=== PATIENT | female | born 1960 | race Caucasian/White ===

== ENCOUNTER 2017-03-18 16:50 | Emergency (ER) | payer BC ==
[2017-03-18] MEDS ORDERED: oxyCODONE/Acetamin 5/325 MG* TAB PO ONE ×3 (18:05→22:14)
--- NOTE | 2017-03-18 19:14 | RAD ---
INDICATION: Right hip and lower leg pain after a fall 2 nights earlier. COMPARISON: None TECHNIQUE: 3 views of the right hip and 3 views of the right lower leg were obtained. FINDINGS: The visualized bones of the right hip and right lower leg are well-corticated and properly aligned. The joint spaces are normal. There is no radiographic evidence of acute fracture or dislocation. IMPRESSION: Normal radiograph of the right hip and lower leg. If the patient's symptoms persist follow-up imaging is recommended.
[2017-03-18 19:15] LABS: Hematocrit 40 % (35-47); Hemoglobin 12.8 g/dl (12.0-16.0); Mean Corpuscular HGB Conc 32 g/dl (31-36); Mean Corpuscular Hemoglobin 29 pg (27-31); Mean Corpuscular Volume 89 fL (80-97); Mean Platelet Volume 10 um3 (7.4-10.4); Red Blood Count 4.46 10^6/ul (4.0-5.4); Red Cell Distribution Width 16 % (10.5-15); White Blood Count 8.7 10^3/ul (3.5-10.8)
[2017-03-18 19:30] LABS: BUN/Creatinine Ratio 19.6 (8-20); Calcium 9.6 mg/dL (8.6-10.3); EGFR African American 72.1 (>60); EGFR Non-African American 56.1 (>60); Potassium 3.7 mmol/L (3.5-5.0)
--- NOTE | 2017-03-18 21:06 | RAD ---
CLINICAL HISTORY: Right hip pain and inability to bear weight since a fall 2 nights previous COMPARISON: Hip radiograph from same date TECHNIQUE: Multiple contiguous axial CT scans were obtained of the abdomen and pelvis after the administration of intravenous contrast. Coronal and sagittal multiplanar reformations are submitted for review. FINDINGS: The visualized portions of the solid abdominal organs are grossly normal in appearance. In the left abdomen there is a large fluid density structure measuring 8 cm in diameter most likely a large renal cyst. There is a fat-containing umbilical hernia with peritoneal fat herniating into the subcutaneous fat. The visualized small and large bowel are not pathologically distended. Depicted best on the coronal plane images (image 100 of 172) the superior most portion of the greater trochanter exhibits a lucency with a bony focus immediately superior to the greater trochanter. The visualized femur including the femoral neck is intact. Burning along the posterior and superior margin of the acetabulum (axial image 67 through 74) there is a subcortical lucency which could represent a defect in the bony labrum. However this appearance is seen to a lesser extent in the left side and fracture at the site is doubtful. IMPRESSION: Possible avulsion fracture involving the superior most portion of the right greater trochanter at the insertion sites of the gluteus musculature.
[2017-03-18 22:25] VITALS: BP 124/73
--- NOTE | 2017-03-25 11:20 | ED ---
ISalinas,Ronaldo, scribed for Tobias Alejandra MD on 03/18/17 at 1804 . Lower Extremity - HPI Summary HPI Summary: This 56 y/o female presents to ED for right hip pain s/p fall in the evening 2 days ago. Pt was walking on steps when she fell. Pt admits to EtOH consumption prior to fall, and pt is unsure if her fall was mechanical or neurological. Weight bearing, ambulation, and movement make the pain worse. PMHx includes CVA with lingering mild aphasia, lupus, and afib. Pt is currently on coumadin. INR of 1.6 was reported a week ago. Plan of care involving imaging results to r/o fracture is discussed with pt and present at bedside, and they are agreeable. - History of Current Complaint Chief Complaint: EDExtremityLower Stated Complaint: HIP PAIN Time Seen by Provider: 03/18/17 17:58 Hx Obtained From: Patient, Medical Records Hx Last Menstrual Period: N/A Mechanism Of Injury: Blunt Trauma, Fall From A Standing Position Onset of Pain: Immediate Pain Intensity: 5 Pain Scale Used: 0-10 Numeric Timing: Constant Location: Is Discrete @ - left hip Character Of Pain: Sharp Aggravating Factor(s): Standing, Ambulation, Movement Alleviating Factor(s): Rest Able to Bear Weight: No - Allergies/Home Medications Allergies/Adverse Reactions: Allergies Allergy/AdvReac Type Severity Reaction Status Date / Time Hydroxychloroquine Allergy Severe Itching Verified 02/29/16 10:38 [From Plaquenil] Sulfa Drugs Allergy Severe Itching Verified 02/29/16 10:38 Adhesive Tape Allergy Blisters Verified 02/29/16 10:38 Bee Venom Allergy Airway Verified 02/29/16 10:38 Obstruction Promethazine [From Phenergan] Allergy Unknown Verified 02/29/16 10:38 Reaction Details TOMATOES Allergy Severe LIPS Uncoded 02/29/16 10:38 SWELL, ITCHY raw nuts Allergy Intermediate Swelling Uncoded 02/29/16 10:38 Of Face,Lips,& Throat MELONS Allergy LIPS Uncoded 02/29/16 10:38 SWELL, ITCHY POTATOES Allergy LIPS SWELL Uncoded 02/29/16 10:38 ITCHY PMH/Surg Hx/FS Hx/Imm Hx Endocrine/Hematology History: Reports: Hx Diabetes, Hx Systemic Lupus Erythematosus Cardiovascular History: Reports: Hx Deep Vein Thrombosis, Hx Hypertension - ON MEDS Denies: Hx Congestive Heart Failure, Hx Pacemaker/ICD, Other Cardiovascular Problems/Disorders Respiratory History: Reports: Hx Sleep Apnea, Other Respiratory Problems/ Disorders - pulmonary vascular congestion GI History: Reports: Hx Gastroesophageal Reflux Disease, Hx Irritable Bowel - SINCE LATE , Other GI Disorders - 2012 hernia repair w/mesh, subsequent infection History: Reports: Hx Renal Disease - abnormal gfr Sensory History: Reports: Hx Contacts or Glasses Denies: Hx Hearing Aid Opthamlomology History: Reports: Hx Contacts or Glasses Neurological History: Reports: Hx Seizures Psychiatric History: Reports: Hx Depression Denies: Hx Panic Disorder - Cancer History Hx Chemotherapy: No Hx Radiation Therapy: No - Surgical History Surgery Procedure, Year, and Place: Tonsillectomy; Appendectomy; x4; Cholecystectomy; Right Knee Arthroscopy; Tubal Ligation; Endometrial Ablation; Cardioversion, hernia repair w/mesh subsequent infection and secondary operation to remove infected mesh & necrotic tissue, heart cath, pseudoanuerysm repair Hx Anesthesia Reactions: No - Immunization History Date of Tetanus Vaccine: unknown Date of Influenza Vaccine: None, patient has Lupus Infectious Disease History: Reports: Hx of Known/Suspected MRSA Denies: Traveled Outside the [place] in Last 30 Days - Family History Known Family History: Positive: Other - Positive breast CA - Social History Alcohol Use: Occasionally Hx Substance Use: No Substance Use Type: Reports: None Hx Tobacco Use: No Smoking Status (MU): Never Smoked Tobacco Review of Systems Negative: Fever, Chills Negative: Erythema Negative: Sore Throat Negative: Chest Pain Negative: Shortness Of Breath, Cough Negative: Abdominal Pain, Nausea Negative: dysuria, hematuria Positive: Other - right hip pain Negative: Rash Neurological: Other - Negative dizziness All Other Systems Reviewed And Are Negative: Yes Physical Exam - Summary Physical Exam Summary: Constitutional: Obese, Alert. (-) Distressed Skin: Warm, Dry. Ecchymosis over RLE tibia HENT: Eyes: Conjunctiva normal Neck: Musculoskeletal ROM normal neck. (-) JVD, (-) Stridor, (-) Tracheal deviation Cardio: Rhythm regular, rate normal, Heart sounds normal; Intact distal pulses; The pedal pulses are 2+ and symmetric. Radial pulses are 2+ and symmetric. (-) Murmur Pulmonary/Chest wall: Effort normal. (-) Respiratory distress, (-) Wheezes, (-) Rales Abd: Soft. (-) Tenderness, (-) Distension, (-) Guarding, (-) Rebound Musculoskeletal: (-) Edema. Exam limited by obesity. RLE knee nontender and with FROM. RLE lateral hip tenderness. Lymph: (-) Cervical adenopathy Neuro: Alert, Oriented x3, Strength normal Psych: Mood and affect Normal Triage Information Reviewed: Yes Vital Signs On Initial Exam: Initial Vitals Temp Pulse Resp BP Pulse Ox 97.8 F 60 20 103/54 98 03/18/17 17:09 03/18/17 17:09 03/18/17 17:09 03/18/17 17:09 03/18/17 17:09 Vital Signs Reviewed: Yes Diagnostics - Vital Signs Vital Signs Temp Pulse Resp BP Pulse Ox 03/18/17 17:09 97.8 F 60 20 103/54 98 - Laboratory Result Diagrams: 03/18/17 18:50 03/18/17 18:50 Lab Statement: Any lab studies that have been ordered have been reviewed, and results considered in the medical decision making process. - Radiology Hip/Pelvis Xray Interpretation: No Acute Changes Radiology Interpretation Completed By: Radiologist Lower extremities X-ray Radiology Interpretation Completed By: Radiologist - See EMR Lower Extremity Course/Dx - Course Assessment/Plan: This 56 y/o female presents to ED for right lateral hip pain s/ p a fall 2 days ago. PMHx includes CVA with residual aphasia. Pt is unsure if the fall was mechanical or neurological. X-ray results were consulted with Dr. Lassiter. Pt is discharged with dx of greater trochanter fracture, and outpatient f/u with Dr. Lassiter. - Diagnoses Provider Diagnoses: Greater trochanter fracture - Physician Notifications Discussed Care Of Patient With: Jos Lassiter Time Discussed With Above Provider: 21:46 Discharge - Discharge Plan Condition: Stable Disposition: HOME Prescriptions: oxyCODONE/Acetamin 5/325 MG* [Percocet 5/325 TAB*] 1 tab PO Q6H PRN #10 tab MDD 4 PRN Reason: Pain - Moderate To Severe Patient Education Materials: Oxycodone/Acetaminophen (By mouth), Hip Fracture ( ED) Referrals: Liset Casillas MD [Primary Care Provider] - 2 Days Jos Lassiter MD [Medical Doctor] - 2 Days The documentation as recorded by the scribeSalinas Soohyun accurately reflects the service I personally performed and the decisions made by me, Tobias Alejandra MD.
== END 2017-03-18 22:24 | disposition home or self-care (01) ==
LOC: ED 16:50
DX: S72.111A Displaced fracture of greater trochanter of right femur, initial encounter for closed fracture (principal); W10.9XXA Fall (on) (from) unspecified stairs and steps, initial encounter; Y93.9 Activity, unspecified; Y92.9 Unspecified place or not applicable; E11.9 Type 2 diabetes mellitus without complications; Z79.01 Long term (current) use of anticoagulants; I48.91 Unspecified atrial fibrillation; I10 Essential (primary) hypertension; K21.9 Gastro-esophageal reflux disease without esophagitis; R56.9 Unspecified convulsions; F32.9 Major depressive disorder, single episode, unspecified; Z86.718 Personal history of other venous thrombosis and embolism; Z91.030 Bee allergy status; Z88.2 Allergy status to sulfonamides; Z91.048 Other nonmedicinal substance allergy status
CPT/HCPCS: 36415; 72192; 80048; 85027; 85610; 85730; 99282; A9270-GY

== ENCOUNTER 2017-06-19 18:11 | Emergency (ER) | payer BC ==
[2017-06-19 21:48] LABS: Hematocrit 43 % (35-47); Hemoglobin 14.2 g/dl (12.0-16.0); Mean Corpuscular HGB Conc 33 g/dl (31-36); Mean Corpuscular Hemoglobin 29 pg (27-31); Mean Corpuscular Volume 86 fL (80-97); Mean Platelet Volume 9 um3 (7.4-10.4); Red Blood Count 4.94 10^6/ul (4.0-5.4); Red Cell Distribution Width 16 % (10.5-15); White Blood Count 8.3 10^3/ul (3.5-10.8)
[2017-06-19 21:57] LABS: ALT 20 U/L (7-52); Albumin 3.7 g/dL (3.2-5.2); Alkaline Phosphatase 119 U/L (34-104); BUN/Creatinine Ratio 19.2 (8-20); Blood Urea Nitrogen 19 mg/dL (6-24); CO2 Carbon Dioxide 24 mmol/L (22-32); Calcium 9.7 mg/dL (8.6-10.3); Chloride 105 mmol/L (101-111); EGFR African American 74.6 (>60); Globulin 4.2 g/dL (2-4); Glucose 89 mg/dL (70-100); Sodium 135 mmol/L (133-145); Total Protein 7.9 g/dL (6.4-8.9)
[2017-06-19] MEDS ORDERED: Iodixanol* (CONTRAST) 320 MG/ML 100 ML SDV IV ONE (22:03)
[2017-06-19 22:05] LABS: Anion Gap 6 mmol/L (2-11)
--- NOTE | 2017-06-19 22:12 | ED ---
Throat Pain/Nasal Congestion - HPI Summary HPI Summary: Patient with a history of lupus and pseudoanerysm repair presents to the ED with left sided facial pain and swelling. She states she had an ingrown hair just inferior and anterior to the left ear a few days prior. Since that time, the area has been getting larger and more painful now radiating to the jaw and into the ear. Notes to some pain radiating to the neck as well. She states today she has begun to feel not herself. Cold sweats and feeling ill. Denies known fever. She has been otherwise healthy. She is swallowing and eating and drinking OK without compromise until today. Denies eating today d/t lack of appetite. Denies taking any medication for relief of symptoms. Denies redness or warmth around the area. Denies hearing loss, tinnitus or mastoid pain. - History of Current Complaint Chief Complaint: EDGeneral Time Seen by Provider: 06/19/17 20:25 Hx Obtained From: Patient Onset/Duration: Sudden Onset Severity: Moderate Associated Signs And Symptoms: Positive: Negative - Epiglottits Risk Factors Epiglottis Risk Factors: Negative - Allergies/Home Medications Allergies/Adverse Reactions: Allergies Allergy/AdvReac Type Severity Reaction Status Date / Time Hydroxychloroquine Allergy Severe Itching Verified 02/29/16 10:38 [From Plaquenil] Sulfa Drugs Allergy Severe Itching Verified 02/29/16 10:38 Adhesive Tape Allergy Blisters Verified 02/29/16 10:38 Bee Venom Allergy Airway Verified 02/29/16 10:38 Obstruction Promethazine [From Phenergan] Allergy Unknown Verified 02/29/16 10:38 Reaction Details TOMATOES Allergy Severe LIPS Uncoded 02/29/16 10:38 SWELL, ITCHY raw nuts Allergy Intermediate Swelling Uncoded 02/29/16 10:38 Of Face,Lips,& Throat MELONS Allergy LIPS Uncoded 02/29/16 10:38 SWELL, ITCHY POTATOES Allergy LIPS SWELL Uncoded 02/29/16 10:38 ITCHY PMH/Surg Hx/FS Hx/Imm Hx Previously Healthy: Yes Endocrine/Hematology History: Reports: Hx Diabetes, Hx Systemic Lupus Erythematosus Cardiovascular History: Reports: Hx Deep Vein Thrombosis, Hx Hypertension - ON MEDS Denies: Hx Congestive Heart Failure, Hx Pacemaker/ICD, Other Cardiovascular Problems/Disorders Respiratory History: Reports: Hx Sleep Apnea, Other Respiratory Problems/ Disorders - pulmonary vascular congestion GI History: Reports: Hx Gastroesophageal Reflux Disease, Hx Irritable Bowel - SINCE LATE , Other GI Disorders - 2012 hernia repair w/mesh, subsequent infection History: Reports: Hx Renal Disease - abnormal gfr Sensory History: Reports: Hx Contacts or Glasses Denies: Hx Hearing Aid Opthamlomology History: Reports: Hx Contacts or Glasses Neurological History: Reports: Hx Seizures Psychiatric History: Reports: Hx Depression Denies: Hx Panic Disorder - Cancer History Hx Chemotherapy: No Hx Radiation Therapy: No - Surgical History Surgery Procedure, Year, and Place: Tonsillectomy; Appendectomy; x4; Cholecystectomy; Right Knee Arthroscopy; Tubal Ligation; Endometrial Ablation; Cardioversion, hernia repair w/mesh subsequent infection and secondary operation to remove infected mesh & necrotic tissue, heart cath, pseudoanuerysm repair Hx Anesthesia Reactions: No - Immunization History Date of Tetanus Vaccine: unknown Date of Influenza Vaccine: None, patient has Lupus Immunizations Up to Date: Yes Infectious Disease History: No Infectious Disease History: Reports: Hx of Known/Suspected MRSA Denies: Traveled Outside the [place] in Last 30 Days - Social History Occupation: Employed Full-time Lives: With Family Alcohol Use: Rare Hx Substance Use: No Substance Use Type: Reports: None Hx Tobacco Use: No Smoking Status (MU): Never Smoked Tobacco Review of Systems Positive: Chills. Negative: Fever, Fatigue, Skin Diaphoresis Negative: Photophobia, Blurred Vision Positive: Ear Ache. Negative: Dental Pain, Sore Throat Negative: Palpitations, Chest Pain Negative: Shortness Of Breath, Cough Gastrointestinal: Negative Negative: no symptoms reported, see HPI Musculoskeletal: Negative Positive: Other - swelling over left parotid Neurological: Negative Psychological: Normal All Other Systems Reviewed And Are Negative: Yes Physical Exam Triage Information Reviewed: Yes Vital Signs On Initial Exam: Initial Vitals Temp Pulse Resp BP Pulse Ox 97.7 F 56 18 103/63 97 06/19/17 18:25 06/19/17 18:25 06/19/17 18:25 06/19/17 18:25 06/19/17 18:25 Vital Signs Reviewed: Yes Appearance: Positive: Well-Appearing, Well-Nourished Skin: Positive: Warm, Skin Color Reflects Adequate Perfusion Head/Face: Positive: Other - swelling over left parotid Eyes: Positive: EOMI, LIZZ, Conjunctiva Clear Neck: Positive: Supple, No Lymphadenopathy Respiratory/Lung Sounds: Positive: Clear to Auscultation, Breath Sounds Present Cardiovascular: Positive: Normal, RRR, Pulses are Symmetrical in both Upper and Lower Extremities Musculoskeletal: Positive: Normal, Strength/ROM Intact Neurological: Positive: Sensory/Motor Intact, Alert, Oriented to Person Place, Time Psychiatric: Positive: Normal AVPU Assessment: Alert - [place] Coma Scale Coma Scale Total: 15 Diagnostics - Vital Signs Vital Signs Temp Pulse Resp BP Pulse Ox 06/19/17 18:25 97.7 F 56 18 103/63 97 - Laboratory Lab Results: Lab Results 06/19/17 06/19/17 Range/Units 21:31 21:31 WBC 8.3 (3.5-10.8) 10^3/ul RBC 4.94 (4.0-5.4) 10^6/ul Hgb 14.2 (12.0-16.0) g/dl Hct 43 (35-47) % MCV 86 (80-97) fL MCH 29 (27-31) pg MCHC 33 (31-36) g/dl RDW 16 H (10.5-15) % Plt Count 224 (150-450) 10^3/ul MPV 9 (7.4-10.4) um3 Neut % (Auto) 72.4 (38-83) % Lymph % (Auto) 15.4 L (25-47) % Sharp % (Auto) 7.9 (1-9) % Eos % (Auto) 3.2 (0-6) % Baso % (Auto) 1.1 (0-2) % Absolute Neuts (auto) 6.0 (1.5-7.7) 10^3/ul Absolute Lymphs (auto) 1.3 (1.0-4.8) 10^3/ul Absolute Monos (auto) 0.7 (0-0.8) 10^3/ul Absolute Eos (auto) 0.3 (0-0.6) 10^3/ul Absolute Basos (auto) 0.1 (0-0.2) 10^3/ul Absolute Nucleated RBC 0.01 10^3/ul Nucleated RBC % 0.1 ESR Cancelled Sodium 135 (133-145) mmol/L Potassium TNP Chloride 105 (101-111) mmol/L Carbon Dioxide 24 (22-32) mmol/L Anion Gap 6 (2-11) mmol/L BUN 19 (6-24) mg/dL Creatinine 0.99 H (0.51-0.95) mg/dL Est GFR ( Amer) 74.6 (>60) Est GFR (Non-Af Amer) 58.0 (>60) BUN/Creatinine Ratio 19.2 (8-20) Glucose 89 (70-100) mg/dL Calcium 9.7 (8.6-10.3) mg/dL Total Bilirubin 1.40 H (0.2-1.0) mg/dL AST TNP ALT 20 (7-52) U/L Alkaline Phosphatase 119 H (34-104) U/L C-React Prot High Sens 6.60 mg/L Total Protein 7.9 (6.4-8.9) g/dL Albumin 3.7 (3.2-5.2) g/dL Globulin 4.2 H (2-4) g/dL Albumin/Globulin Ratio 0.9 L (1-3) Result Diagrams: 06/19/17 21:31 06/19/17 22:10 Lab Statement: Any lab studies that have been ordered have been reviewed, and results considered in the medical decision making process. EENT Course/Dx - Course Course Of Treatment: Labs obtained and WNL. Maxillofacial with contrast obtained of the left parotid to assess for abscess vs. deep space infection. CT negative for drainable abscess or deep space infection. Possible parotitis. Unable to assess further based on CT scan. Patient made aware of results and she is OK with plan. Will give Clindamycin 4 x daily for possible dental/ cellulitis/abscess infection of the cheek. Labs obtained and WNL. No fevers. Patient is to follow up with PCP. Possible parotitis and patient made aware this could be viral. She is willing to try to the abx for a poss bacterial infection and follow up early next week with PCP. Unliklely suppurative parotits based on normal labs. - Differential Diagnoses Differential Diagnoses: Other - parotitis, viral infection, bacterial infection , abscess - Diagnoses Provider Diagnoses: Swelling, cheek Discharge - Discharge Plan Condition: Stable Disposition: HOME Prescriptions: Clindamycin Cap(NF) [Clindamycin Cap 300 mg Cap(NF)] 300 mg PO Q6H #28 cap Patient Education Materials: Abscess (ED) Referrals: Liset Casillas MD [Primary Care Provider] - Additional Instructions: I believe you may have an infection under the skin There is no evidence of an abscess that can be drained Clindamycin 300mg four times daily for 7 days If you do not improve, please return to the your PCP All other blood work today was normal Ibuprofen 600mg three times daily for any discomfort Follow up in the ED if any symptoms become worse
[2017-06-19] MEDS ORDERED: Clindamycin CAP* 150 MG PO ONE (23:10)
[2017-06-20 00:11] VITALS: BP 138/64
--- NOTE | 2017-06-20 07:42 | RAD ---
indication: Swelling and pain overlying the left parotid gland COMPARISON: CT abdomen neck February 29, [address] scan of the maxillofacial bones was performed without intravenous contrast enhancement. Contiguous axial sections were obtained from the level of the hyoid bone to just above the frontal sinuses. Findings: Similar to the prior CTA, there are multifocal subcentimeter hyperattenuating foci in the bilateral parotid glands and submandibular glands. There is mild asymmetric enlargement of the left parotid gland. The largest nodule in the left parotid gland measures 9 mm (image 32 of 75). This nodule appears to correspond to a 5 mm nodule identified on the February 29, 2016 CT examination. There is a mild degree of subcutaneous induration overlying the left parotid gland. There are no pathologically enlarged submandibular or cervical chain lymph nodes. Bones: There is no displaced fracture or dislocation. The orbital rim is intact. Bilaterally the nasal bones are intact. The zygomatic arch is intact. The pterygoid plates are intact. Orbits: The globes are round. The optic nerves are symmetric. The extraocular musculature is normal. There is no post septal or intraconal inflammatory change. There is no retrobulbar hematoma. Paranasal Sinuses: The paranasal sinuses are clear. Visualized brain: The limited views of the brain do not demonstrate any acute abnormality or extra-axial hemorrhage. IMPRESSION: 1. CT findings are compatible with mild left-sided parotiditis. There is a 9 mm nodule in the anterior left parotid gland that has increased in size from a 5 mm nodule seen on the February 29, 2016 CT examination. 2. Nodularity of the bilateral parotid and submandibular glands, otherwise not significantly changed since the February 29, 2016 CT examination potentially representing benign lymphoepithelial lesions.
== END 2017-06-19 23:45 | disposition home or self-care (01) ==
LOC: ED 18:11
DX: R22.0 Localized swelling, mass and lump, head (principal)
CPT/HCPCS: 36415; 70487; 80053; 85025; 85652; 86141; 99282; A9270-GY; Q9967

== ENCOUNTER 2018-05-05 15:09 | Emergency (ER) | payer BC ==
--- OUTSIDE RECORDS SUMMARY | 2018-05-05 15:15 | XMS REPORT ---
:1960 External Reference #:[id number] Author Organization [facility] Address [address] [place] [address] Phone [phone] Care Team Providers Name Role Phone Liset Casillas MD Primary Care Physician Unavailable Payers Type Date Identification Numbers Payment Provider Subscriber Commercial Policy Number: [id number] BS Facets Milo Pacheco Saba PayID: [id number] [address] [address] JAREN Ortega [address] [employer] Effective: Policy Number: BS Facets Mariangel Jenkinskandis 2013 [id number] Expires: 2017 PayID: [id number] [address] [address] JAREN Ortega [address] [employer] B Effective: Policy Number: BS Facets Milo Pacheco Saba 2012 [id number] Expires: 2013 PayID: [id number] [address] [address] JAREN Ortega [address] [employer] B Effective: 2000 Policy Number: BS Of JUANPABLO Milo Saba [id number] Expires: 2012 PayID: [id number] [address] [address] JAREN Ortega [address] Problems Date Description Provider Status Onset: 07/07/2013 Atrial fibrillation Marybel Wayne M.D. Active Onset: 07/07/2013 Essential hypertension Marybel Wayne M.D. Active Onset: 07/07/2013 Obstructive sleep apnea syndrome Marybel Wayne M.D. Active Onset: 01/04/2015 Morbid obesity Marybel Wayne M.D. Active Onset: 03/21/2015 Left bundle branch block Marybel Wayne M.D. Active Onset: 04/08/2015 Congestive heart failure Marybel Wayne M.D. Active Onset: 04/08/2015 Difficulty breathing Marybel Wayne M.D. Active Onset: 05/04/2015 Antiphosphilipid Antibody With Hemorhagic Marybel Wayne M.D. Active Disorder Onset: 01/16/2016 Seizure Garth Miranda MD Active Onset: 01/16/2016 Cerebral artery occlusion Garth Miranda MD Active Onset: 05/16/2016 Obesity Carmen Saldivar MD Active Onset: 03/24/2018 Cardiomyopathy Marybel Wayne M.D. Active Onset: 11/05/2017 Nonobstructive cardiomyopathy Marybel Wayne M.D. Active Onset: 11/05/2017 Chronic atrial fibrillation Marybel Wayne M.D. Active Onset: 03/22/2017 Disp fx of greater trochanter of right Jos Lassiter MD Active femur, init Family History Date Family Member(s) Problem(s) Comments Father Hypertension Father Diabetes Type II Father Atrial Fibrillation Father Defibrillator Father Coronary Artery Disease (CAD) Father Deep Venous Thrombosis (DVT) Mother due to Rheumatic Heart Disease () Siblings sister w/DM Social History Type Date Description Comments Marital Status Lives With Occupation Unemployed Cigarette Use Never Smoked Cigarettes ETOH Use Rarely consumes alcohol Smoking Patient has never smoked Recreational Drug Use Never Used Drugs Daily Caffeine occasionally Exercise Type/Frequency Exercises regularly 15min 4 xs wk Allergies, Adverse Reactions, Alerts Date Description Reaction Status Severity Comments 07/03/2013 Plaquenil active 07/03/2013 Sulfa Antibiotics active 07/03/2013 Coconut active 07/03/2013 Potatoes active raw 07/03/2013 Nuts active raw 07/03/2013 Tomatoes active raw 05/04/2015 Adhesive active per patient 07/18/2016 Bee Sting active anaphylasis reaction 07/18/2016 Phenergan active Anxiety attack Medications Medication Date Status Form Strength Qnty SIG Indications Ordering Provider Co Q10 01/03 Active Capsules 200mg 90cap 3 gummies Marybel /2017 scar Wayne M.D. Fluoxetine HCL 12/15 Active Capsules 40mg 90cap 1 by mouth Vinny, /2017 s every day Liset Ziegler MD Levetiracetam 11/25 Active Tablets 500mg 1 in am 2 in PM Liset Ziegler MD Potassium Chloride 11/15 Active Tablets 20Meq 1 tablet , ER Am, 2 Liset tablet PM MD Toney Atorvastatin 08/29 Active Tablets 40mg 1 po qd at Vinny, bedtime Liset Ziegler MD Metoprolol Tartrate 07/19 Active Tablets 50mg 1 tab po bid Liset Ziegler MD Epipen 2-Ricki 07/18 Active Solution 2unit use as Jose J Auto-Inje s directed xi Parrish MD Cpap Active Device qhs Unknown Warfarin Sodium Active Tablets 4mg 4mg on , tu, Benjamin Hutchins, usama Ziegler MD and 6mg on mon,sat. as directed Dr. Casillas Bumetanide Active Tablets 1mg one a day Deloris Aspirin Active Tablets 325mg [address] every day Magnesium Citrate Active 160mg 1 tablet po daily Warfarin Sodium Active Tablets 2mg added to 4 , mg tablets Liset to make a MD Toney total of 6 mg daily Multi Adult Gummies Active Chewtabs 2 by mouth Unknown every day D-Ribose 01/03 Hx Chew Tabs 3000mg 2 tablets daily Rosana, - M.D. 04/17 Cartia XT 11/05 Hx Caps ER 120mg 90cap 1 tab PO q I42.8 24HR s day [place], - M.D. 01/20 Multivital-M 04/08 Hx Tablets 1 tab q day [place], - M.D. 01/14 Sotalol HCL (AF) 03/14 Hx Tablets 80mg 1 tab by Marybel mouth Rosana, - twice a M.D. Metoprolol 03/14 Hx Tablets 50mg 60tab 1 by mouth Marybel Succinate ER 24HR s twice a [place], - day M.D. 05/03 Klor-Con 12/06 Hx Packet 20Meq 60uni 2 by mouth Marybel ts every day [place], - M.D. 12/06 Klor-Con M20 12/06 Hx Tablets 20Meq Marybel ER [place], - M.D. 01/15 Minocycline HCL 07/07 Hx Capsules 100mg 21cap 2 tabs by 879.3 Jag s mouth D. - every [place], 07/16 night, 1 M.D. tab by mouth every morning Potassium Chloride 03/02 Hx Tablets 20Meq 270ta 2 tabs by Marybel ER ER bs mouth [place], - every day M.D. 12/06 directed Metoprolol 01/07 Hx Tablets 25mg 90tab 1 tab by Marybel Succinate ER 24HR s mouth [place], - every day M.D. 07/07 Pradaxa 12/15 Hx Capsules 150mg 180ca 1 cap by Marybel ps mouth [place], - twice a M.D. Diovan 11/21 Hx Tablets 80mg 90tab 1 by mouth Marybel s every day [place], - M.D. 05/03 Potassium Chloride 09/19 Hx Packet 20Meq 270un Disolve 3 its packets Rosana, - (60 mEq) M.D. 03/02 in and take by mouth every day Hydrochlorothiazide 09/04 Hx Tablets 25mg 90tab 1 tab by Marybel s mouth [place], - every day M.D. 01/14 Sotalol HCL 07/25 Hx Tablets 80mg 90tab 1 tablets Marybel s by mouth Rosana, - twice a M.D. Omeprazole Hx Capsules 20mg 90cap 1 po qd Unknown /0000 s - 01/14 Minocycline HCL Hx Capsules 100mg 14cap 1 po bid Unknown /0000 s - 07/07 Cipro Hx Tablets 500mg 28tab 1 po bid Unknown / s - 07/07 Multivitamins Hx Capsules 30cap 1 capsule Unknown /0000 s daily - 03/10 Cartia XT Hx Caps ER 240mg 1 cap po I42.8 Unknown /0000 24HR daily - 11/05 Tramadol HCL Hx Tablets 50mg 1 tablet Cardina, / po as Tyrese, - needed 01/14 Warfarin Sodium Hx Tablets 10mg as Unknown /0000 directed ( - adjusted 07/17Ofelia Cardilora) Oxybutynin Chloride Hx Tablets 5mg once a day Unknown /0000 ( has not - been 05/14 taking regularly) Fluconazole Hx Tablets 150mg Unknown /0000 - 01/14 Hydroxyzine Pamoate Hx Capsules 25mg 2 at hs Unknown / - 05/15 Oxycodone HCL Hx Tablets 5mg Take 09/10 Unknown Tablet - Orally as 11/21 Needed For Insomnia-h asnt used in months Fluocinonide Hx Cream 0.05% Apply 1 Unknown / Gram - Topically 07/17 Once Or Twice Daily To Forearms Klor-Con 10 Hx Tablets 60Meq by mouth Unknown /0000 ER every day - 11/04 [place] 3-6-9 Complex Hx Capsules 2 am and 1 Unknown /0000 pm - 04/17 L-Carnitine Hx Capsules 500mg 1 tablet Unknown /0000 daily - 04/17 Vital Signs Date Vital Result Comment 04/18/2018 Height 66 inches 5'6" Weight 276.19 lb Heart Rate 68 /min BP Systolic Sitting 104 mmHg lue lg cuff BP Diastolic Sitting 60 mmHg lue lg cuff BP Systolic Standing 100 mmHg BP Diastolic Standing 62 mmHg Respiratory Rate 16 /min BMI (Body Mass Index) 44.6 kg/m2 Ejection Fraction 40-45% 11/19/2017 echo 04/15/2018 Height 66 inches 5'6" Weight 141.00 lb BP Systolic Sitting 122 mmHg BP Diastolic Sitting 88 mmHg O2 % BldC Oximetry 98 % BMI (Body Mass Index) 22.8 kg/m2 03/24/2018 Height 66 inches 5'6" Weight 277.00 lb with out Heart Rate 62 /min BP Systolic Sitting 102 mmHg Lue lg cuff BP Diastolic Sitting 80 mmHg Lue lg cuff BP Systolic Standing 100 mmHg Lue lg cuff BP Diastolic Standing 72 mmHg Lue lg cuff Respiratory Rate 16 /min BMI (Body Mass Index) 44.7 kg/m2 01/21/2018 Height 66 inches 5'6" Weight 297.00 lb Heart Rate 62 /min BP Systolic Sitting 100 mmHg lue lg cuff BP Diastolic Sitting 46 mmHg lue lg cuff BP Systolic Standing 98 mmHg lue lg cuff BP Diastolic Standing 42 mmHg lue lg cuff Respiratory Rate 16 /min BMI (Body Mass Index) 47.9 kg/m2 Ejection Fraction 40-45% 11/19/2017 echo 01/03/2018 Height 66 inches 5'6" Weight 277.00 lb w/ shoes Heart Rate 58 /min BP Systolic Sitting 98 mmHg rue lg cuff BP Diastolic Sitting 60 mmHg rue lg cuff Respiratory Rate 18 /min BMI (Body Mass Index) 44.7 kg/m2 Ejection Fraction 40-45% echo 11/19/17 11/05/2017 Height 66 inches 5'6" Weight 273.00 lb with shoes Heart Rate 76 /min irreg BP Systolic Sitting 94 mmHg Rue reg cuff BP Diastolic Sitting 70 mmHg Rue reg cuff BP Systolic Standing 104 mmHg Rue reg cuff BP Diastolic Standing 70 mmHg Rue reg cuff Respiratory Rate 17 /min BMI (Body Mass Index) 44.1 kg/m2 Ejection Fraction 40% date 10/31/17 ECHO 07/01/2017 Height 66 inches 5'6" Weight 268.00 lb Heart Rate 88 /min BP Systolic Sitting 128 mmHg BP Diastolic Sitting 88 mmHg BMI (Body Mass Index) 43.3 kg/m2 03/22/2017 Height 66 inches 5'6" BP Systolic 140 mmHg BP Diastolic 90 mmHg Body Temperature 98.5 F Pain Level 6 01/21/2017 Height 66 inches 5'6" Weight 255.38 lb Heart Rate 80 /min BP Systolic 126 mmHg BP Diastolic 80 mmHg BMI (Body Mass Index) 41.2 kg/m2 08/15/2016 Heart Rate 64 /min BP Systolic Sitting 112 mmHg BP Diastolic Sitting 80 mmHg Pain Level 2 O2 % BldC Oximetry 95 % 07/18/2016 Heart Rate 56 /min BP Systolic Sitting 114 mmHg BP Diastolic Sitting 92 mmHg 05/16/2016 Height 66 inches 5'6" Weight 237.00 lb Heart Rate 66 /min BP Systolic 114 mmHg BP Diastolic 72 mmHg Respiratory Rate 14 /min O2 % BldC Oximetry 98 % BMI (Body Mass Index) 38.2 kg/m2 01/16/2016 Height 66 inches 5'6" Weight 247.00 lb Heart Rate 72 /min BP Systolic Sitting 110 mmHg BP Diastolic Sitting 68 mmHg Respiratory Rate 16 /min BMI (Body Mass Index) 39.9 kg/m2 05/04/2015 Height 66 inches 5'6" Weight 264.00 lb with shoes Heart Rate 72 /min irreg BP Systolic Sitting 124 mmHg LA lg cuff BP Diastolic Sitting 82 mmHg LA lg cuff BP Systolic Standing 122 mmHg La lg cuff BP Diastolic Standing 78 mmHg La lg cuff BMI (Body Mass Index) 42.6 kg/m2 Ejection Fraction 50-55% date 03/25/15 ECHO 04/08/2015 Height 66 inches 5'6" Weight 295.00 lb with shoes Heart Rate 80 /min irreg BP Systolic Sitting 110 mmHg L arm large cuff BP Diastolic Sitting 80 mmHg L arm large cuff BP Systolic Standing 98 mmHg BP Diastolic Standing 70 mmHg Respiratory Rate 20 /min BMI (Body Mass Index) 47.6 kg/m2 Ejection Fraction 50-55 per date 03/25/15 ECHO 03/21/2015 Height 66 inches 5'6" Weight 293.00 lb w/o shoes Heart Rate 72 /min irreg BP Systolic Sitting 116 mmHg Lue, lg cuff BP Systolic Standing 112 mmHg Lue BP Diastolic Standing 70 mmHg Lue Respiratory Rate 18 /min BMI (Body Mass Index) 47.3 kg/m2 Ejection Fraction 54% as of 01/01/12 echo 03/14/2015 Height 66 inches 5'6" Heart Rate 90 /min BP Systolic Sitting 130 mmHg BP Diastolic Sitting 70 mmHg BP Systolic Standing 126 mmHg BP Diastolic Standing 74 mmHg Respiratory Rate 20 /min 02/11/2015 Height 66 inches 5'6" Weight 290.00 lb Heart Rate 67 /min BP Systolic Sitting 130 mmHg BP Diastolic Sitting 76 mmHg Body Temperature 18.0 F O2 % BldC Oximetry 98 % BMI (Body Mass Index) 46.8 kg/m2 01/14/2015 Height 66 inches 5'6" Weight 290.00 lb w/o shoes Heart Rate 92 /min irreg BP Systolic Sitting 126 mmHg Ra, reg cuff BP Diastolic Sitting 90 mmHg Ra, reg cuff BP Systolic Standing 130 mmHg Ra BP Diastolic Standing 84 mmHg Ra Respiratory Rate 16 /min BMI (Body Mass Index) 46.8 kg/m2 Ejection Fraction 54% 12/31/2013 01/04/2015 Height 66 inches 5'6" Weight 294.00 lb without shoes Heart Rate 98 /min per EKG BP Systolic Sitting 116 mmHg right arm large cuff BP Diastolic Sitting 72 mmHg right arm large cuff BP Diastolic Standing 78 mmHg BMI (Body Mass Index) 47.4 kg/m2 Ejection Fraction 54% 01/01/12 12/06/2014 Height 66 inches 5'6" Weight 293.00 lb w/o shoes Heart Rate 68 /min reg BP Systolic Sitting 112 mmHg Ra, lg cuff BP Diastolic Sitting 70 mmHg Ra, lg cuff BP Systolic Standing 108 mmHg Ra BP Diastolic Standing 72 mmHg Ra Respiratory Rate 18 /min BMI (Body Mass Index) 47.3 kg/m2 10/29/2014 Height 66 inches 5'6" Weight 290.00 lb Heart Rate 52 /min BP Systolic Sitting 134 mmHg BP Diastolic Sitting 72 mmHg Respiratory Rate 20 /min O2 % BldC Oximetry 97 % BMI (Body Mass Index) 46.8 kg/m2 04/06/2014 Height 66 inches 5'6" Weight 291.00 lb Heart Rate 56 /min BP Systolic Sitting 102 mmHg Ra large cuff BP Diastolic Sitting 76 mmHg Ra large cuff BP Systolic Standing 98 mmHg Ra BP Diastolic Standing 74 mmHg Ra Respiratory Rate 16 /min BMI (Body Mass Index) 47.0 kg/m2 07/16/2013 Height 66 inches 5'6" Weight 288.00 lb Heart Rate 72 /min BP Systolic 138 mmHg BP Diastolic 90 mmHg Body Temperature 98.3 F BMI (Body Mass Index) 46.5 kg/m2 07/07/2013 Height 66 inches 5'6" Weight 288.00 lb Heart Rate 72 /min BP Systolic Sitting 114 mmHg LA reg cuff BP Diastolic Sitting 82 mmHg LA reg cuff BP Systolic Standing 106 mmHg LA BP Diastolic Standing 80 mmHg LA BMI (Body Mass Index) 46.5 kg/m2 07/07/2013 Height 66 inches 5'6" Weight 286.00 lb Heart Rate 68 /min BP Systolic 118 mmHg BP Diastolic 76 mmHg Body Temperature 98.3 F BMI (Body Mass Index) 46.2 kg/m2 Results Test Date Test Result H/L Range Note Laboratory test 01/21/2017 Levetiracetam (Keppra) 28.0 g/mL 1 finding Laboratory test 11/14/2015 Inr/Protime 3.60 High 0.89-1.11 finding Levetiracetam (Keppra) 12.4 g/mL 2 Laboratory test finding 09/15/2015 C Reactive Protein 10.88 mg/L High < 5.00 3 Vitamin B12 459 pg/mL 180-914 4 Comp Metabolic Panel 09/15/2015 Sodium 137 mmol/L 133-145 Potassium 4.1 mmol/L 3.5-5.0 Chloride 103 mmol/L 101-111 Co2 Carbon Dioxide 24 mmol/L 22-32 Anion Gap 10 mmol/L 2-11 Glucose 141 mg/dL High 70-100 Blood Urea Nitrogen 18 mg/dL 6-24 Creatinine 1.21 mg/dL High 0.51-0.95 BUN/Creatinine Ratio 14.9 8-20 Calcium 9.4 mg/dL 8.6-10.3 Total Protein 7.2 g/dL 6.4-8.9 Albumin 3.6 g/dL 3.2-5.2 Globulin 3.6 g/dL 2-4 Albumin/Globulin Ratio 1.0 1-3 Total Bilirubin 2.00 mg/dL High 0.2-1.0 Alkaline Phosphatase 109 U/L High 34-104 Alt 13 U/L 7-52 Ast 19 U/L 13-39 Egfr Non- 46.2 >60 Egfr 59.4 >60 5 Laboratory test finding 09/15/2015 TSH (Thyroid Stim Horm) 1.41 ?IU/mL 0.34-5.60 CBC Auto Diff 09/15/2015 White Blood Count 6.8 10^3/uL 3.5-10.8 Red Blood Count 4.96 10^6/uL 4.0-5.4 Hemoglobin 11.9 g/dL Low 12.0-16.0 Hematocrit 39 % 35-47 Mean Corpuscular Volume 78 fL Low 80-97 Mean Corpuscular Hemoglobin 24 pg Low 27-31 Mean Corpuscular HGB Conc 31 g/dL 31-36 Red Cell Distribution Width 22 % High 10.5-15 Platelet Count 264 10^3/uL 150-450 Mean Platelet Volume 9 um3 7.4-10.4 Abs Neutrophils 4.7 10^3/uL 1.5-7.7 Abs Lymphocytes 1.0 10^3/uL 1.0-4.8 Abs Monocytes 0.7 10^3/uL 0-0.8 Abs Eosinophils 0.2 10^3/uL 0-0.6 Abs Basophils 0.2 10^3/uL 0-0.2 Abs Nucleated RBC 0 10^3/uL Granulocyte % 68.8 % 38-83 Lymphocyte % 15.2 % Low 25-47 Monocyte % 10.1 % High 1-9 Eosinophil % 3.3 % 0-6 Basophil % 2.6 % High 0-2 Nucleated Red Blood Cells % 0.1 Lipid Profile (Trig/Chol/HDL) 03/29/2015 Triglycerides 156 mg/dL 6 Cholesterol 190 mg/dL 7 HDL Cholesterol 26.0 mg/dL 8 LDL Cholesterol 133 mg/dL 9 Basic Metabolic Panel 03/29/2015 Sodium 138 mmol/L 133-145 Potassium 3.4 mmol/L Low 3.5-5.0 Chloride 102 mmol/L 101-111 Co2 Carbon Dioxide 27 mmol/L 22-32 Anion Gap 9 mmol/L 2-11 Glucose 115 mg/dL High 70-100 Blood Urea Nitrogen 13 mg/dL 6-24 Creatinine 1.05 mg/dL High 0.51-0.95 BUN/Creatinine Ratio 12.4 8-20 Calcium 9.4 mg/dL 8.6-10.3 Egfr Non- 54.6 >60 Egfr 70.2 >60 10 Inr/Protime 03/29/2015 Inr 1.01 0.78-1.07 Cath Panel 03/29/2015 Partial Thrombo Time PTT 37.7 seconds High 26.0- 36.3 CBC Auto Diff 03/29/2015 White Blood Count 5.7 10^3/uL 4.8-10.8 Red Blood Count 5.46 10^6/uL High 4.0-5.4 Hemoglobin 15.5 g/dL 12.0-16.0 Hematocrit 48 % High 35-47 Mean Corpuscular Volume 87 fL 80-97 Mean Corpuscular Hemoglobin 28 pg 27-31 Mean Corpuscular HGB Conc 33 g/dL 31-36 Red Cell Distribution Width 14 % 10.5-15 Platelet Count 222 10^3/uL 150-450 Mean Platelet Volume 10 um3 7.4-10.4 Abs Neutrophils 3.6 10^3/uL 1.5-7.7 Abs Lymphocytes 1.4 10^3/uL 1.0-4.8 Abs Monocytes 0.4 10^3/uL 0-0.8 Abs Eosinophils 0.2 10^3/uL 0-0.6 Abs Basophils 0.1 10^3/uL 0-0.2 Abs Nucleated RBC 0.02 10^3/uL Granulocyte % 62.7 % 38-83 Lymphocyte % 24.1 % Low 25-47 Monocyte % 7.8 % 1-9 Eosinophil % 3.8 % 0-6 Basophil % 1.6 % 0-2 Nucleated Red Blood Cells % 0.3 Laboratory test 01/05/2015 Troponin I 0.01 ng/mL <0.03 11, 12 finding Laboratory test 01/04/2015 TSH (Thyroid 1.04 IU/mL 0.34-5.60 finding Stimulating Horm) Magnesium 1.9 mg/dL 1.9-2.7 Basic Metabolic Panel 01/04/2015 Sodium 137 mmol/L 133-145 Potassium 4.2 mmol/L 3.5-5.0 Chloride 104 mmol/L 101-111 Co2 Carbon Dioxide 26 mmol/L 22-32 Anion Gap 7 mmol/L 2-11 Glucose 109 mg/dL High 70-100 Blood Urea Nitrogen 17 mg/dL 6-24 Creatinine 0.99 mg/dL High 0.51-0.95 BUN/Creatinine Ratio 17.2 8-20 Calcium 9.7 mg/dL 8.6-10.3 Egfr Non- 58.5 >60 Egfr 75.2 >60 13 Basic Metabolic Panel 04/06/2014 Sodium 138 mmol/L 133-145 Potassium 3.8 mmol/L 3.7-5.6 Chloride 103 mmol/L 101-111 Co2 Carbon Dioxide 30 mmol/L 22-32 Anion Gap 5 mmol/L 2-11 Glucose 109 mg/dL High 70-100 Blood Urea Nitrogen 15 mg/dL 6-24 Creatinine 1.01 mg/dL High 0.51-0.95 BUN/Creatinine Ratio 14.9 8-20 Calcium 9.2 mg/dL 8.6-10.3 Egfr Non- 57.3 >60 Egfr 73.7 >60 14 Basic Metabolic Panel 10/24/2012 Sodium 136 mmol/L 133-145 Potassium 4.2 mmol/L 3.5-5.0 Chloride 102 mmol/L 101-111 Co2 Carbon Dioxide 28.0 mmol/L 22-32 Anion Gap 6.0 mmol/L 2-11 Glucose 96 mg/dL 70-100 Blood Urea Nitrogen 19 mg/dL 6-24 Creatinine 0.90 mg/dL 0.50-1.40 BUN/Creatinine Ratio 21.1 High 8-20 Calcium 9.7 mg/dL 8.1-9.9 Egfr Non- 65.8 >60 Egfr 84.6 >60 15 1 REFERENCE VALUE 12.0 - 46.0 ADDITIONAL INFORMATION This test was developed and its performance characteristics determined by [facility] in a manner consistent with CLIA requirements. This test has not been cleared or approved by the U.S. Food and Drug Administration. Test Performed by: [facility] [place] [facility] [id number] 2 REFERENCE VALUE 12.0 - 46.0 Test Performed by: [place] [address] Occupational Medicine Officer: Ned Stevens II, M.D., Ph.D. 3 Acute inflammation: >10.00 4 Normal Range 180 to 914 Indeterminate Range 145 to 180 Deficient Range <145 5 Because ethnic data is not always readily available, this report includes an eGFR for both -Americans and non- Americans. The National Kidney Disease Education Program (NKDEP) does not endorse the use of the MDRD equation for patients that are not between the ages of 18 and 70, are , have extremes of body size, muscle mass, or nutritional status, or are non- or non-. According to the National Kidney Foundation, irrespective of diagnosis, the stage of the disease is based on the level of kidney function: Stage Description GFR(mL/min/1.73 m(2)) 1 Kidney damage with normal or decreased GFR 90 2 Kidney damage with mild decrease in GFR 60-89 3 Moderate decrease in GFR 30-59 4 Severe decrease in GFR 15-29 5 Kidney failure <15 (or dialysis) 6 Desirable <150 Borderline high 150-199 High 200-499 Very High >500 7 Desirable <200 Borderline high 200-239 High >239 8 Low <40 Desirable: 40-60 High: >60 9 Desirable: <100 mg/dL Near Optimal: 100-129 mg/dL Borderline High: 130-159 mg/dL High: 160-189 mg/dL Very High: >189 mg/dL 10 Because ethnic data is not always readily available, this report includes an eGFR for both -Americans and non- Americans. The National Kidney Disease Education Program (NKDEP) does not endorse the use of the MDRD equation for patients that are not between the ages of 18 and 70, are , have extremes of body size, muscle mass, or nutritional status, or are non- or non-. According to the National Kidney Foundation, irrespective of diagnosis, the stage of the disease is based on the level of kidney function: Stage Description GFR(mL/min/1.73 m(2)) 1 Kidney damage with normal or decreased GFR 90 2 Kidney damage with mild decrease in GFR 60-89 3 Moderate decrease in GFR 30-59 4 Severe decrease in GFR 15-29 5 Kidney failure <15 (or dialysis) 11 CALL RESULTS TO EXT [facility] 12 Reference Range and Interpretation: TnI (ng/mL) Interpretation Less Than 0.03 ng/mL Not supportive of diagnosis of MA 0.03 - 0.50 ng/mL Indeterminate: suggest serial studies if clinically indicated. Greater than 0.5 ng/mL Consistent with diagnosis of MA 13 Because ethnic data is not always readily available, this report includes an eGFR for both -Americans and non- Americans. The National Kidney Disease Education Program (NKDEP) does not endorse the use of the MDRD equation for patients that are not between the ages of 18 and 70, are , have extremes of body size, muscle mass, or nutritional status, or are non- or non-. According to the National Kidney Foundation, irrespective of diagnosis, the stage of the disease is based on the level of kidney function: Stage Description GFR(mL/min/1.73 m(2)) 1 Kidney damage with normal or decreased GFR 90 2 Kidney damage with mild decrease in GFR 60-89 3 Moderate decrease in GFR 30-59 4 Severe decrease in GFR 15-29 5 Kidney failure <15 (or dialysis) 14 Because ethnic data is not always readily available, this report includes an eGFR for both -Americans and non- Americans. The National Kidney Disease Education Program (NKDEP) does not endorse the use of the MDRD equation for patients that are not between the ages of 18 and 70, are , have extremes of body size, muscle mass, or nutritional status, or are non- or non-. According to the National Kidney Foundation, irrespective of diagnosis, the stage of the disease is based on the level of kidney function: Stage Description GFR(mL/min/1.73 m(2)) 1 Kidney damage with normal or decreased GFR 90 2 Kidney damage with mild decrease in GFR 60-89 3 Moderate decrease in GFR 30-59 4 Severe decrease in GFR 15-29 5 Kidney failure <15 (or dialysis) 15 Because ethnic data is not always readily available, this report includes an eGFR for both -Americans and non- Americans. The National Kidney Disease Education Program (NKDEP) does not endorse the use of the MDRD equation for patients that are not between the ages of 18 and 70, are , have extremes of body size, muscle mass, or nutritional status, or are non- or non-. According to the National Kidney Foundation, irrespective of diagnosis, the stage of the disease is based on the level of kidney function: Stage Description GFR(mL/min/1.73 m(2)) 1 Kidney damage with normal or decreased GFR 90 2 Kidney damage with mild decrease in GFR 60-89 3 Moderate decrease in GFR 30-59 4 Severe decrease in GFR 15-29 5 Kidney failure <15 (or dialysis) Procedures Date CPT Code Description Status Comment 04/15/2018 91272 ECHO Stress Test Incl Perf Completed Contiuous ekg Monitoring W/Phys Superv 02/13/2018 90703 Holter Monitor Review (24 hr) Completed review & interp only 02/10/2018 62218 ECG Monitor/Recording W/Visual Completed Superimposition Scanning 11/19/2017 05746 Echocardiogram, Limited Study Completed 11/05/2017 47352 EKG Tracing & Interpretation Completed 10/31/2017 28589 ECHO Transthoracic, Real-Time 2D Completed With Doppler And Color Flow 10/31/2017 97035 ECHO Transthoracic, Real-Time 2D Completed With Doppler And Color Flow 06/04/2017 Diabetic Retinal Eye Exam Completed Document: 06/04/17 - Consult Ophthalmology-Wenceslao 03/22/2017 68829 Closed Treatment Of Greater Completed Trochanteric 07/18/2016 91821 FX Treatment Closed Phalanx Other Completed Than Great Toe W/O Manip 04/18/2016 14643 EEG Monitoring Computer Completed 04/17/2016 20210 EEG Monitoring Computer Completed 04/16/2016 34571 EEG Monitoring Computer Completed 02/29/2016 33583 EEG Recording Awake & Drowsy Completed 10/10/2015 27272 EEG Recording Awake & Asleep Completed 05/25/2015 46519 Electroencephalogram EEG Extended Completed Monitoring Over 1 Hour 05/04/2015 11451 EKG Tracing & Interpretation Completed 04/08/2015 17646 EKG Tracing & Interpretation Completed 03/30/2015 62862 Left Heart Cath. Incl S/I Completed Coronaries, Angio S/I V Gram If Done 03/30/2015 25686 Left Heart Cath. Incl S/I Completed Coronaries, Angio S/I V Gram If Done 03/25/2015 12281 ECHO Transthoracic, Real-Time 2D Completed With Doppler And Color Flow 03/21/2015 71520 EKG Tracing & Interpretation Completed 03/14/2015 09187 EKG Tracing & Interpretation Completed 01/14/2015 22164 EKG Tracing & Interpretation Completed 01/05/2015 14253 Cardioversion Completed 01/04/2015 81548 EKG Tracing & Interpretation Completed 12/06/2014 01831 EKG Tracing & Interpretation Completed 04/21/2014 64807 EKG Tracing & Interpretation Completed 04/06/2014 63252 EKG Tracing & Interpretation Completed 07/07/2013 17675 EKG Tracing & Interpretation Completed 11/04/2012 65725 EKG Tracing & Interpretation Completed 09/03/2012 16929 EKG Tracing & Interpretation Completed Encounters Type Date Location Provider CPT E/M Dx Office Visit 03/24/2018 1:50p [facility] Nany Wayne M.D. 98317 I48.2 C++ Quant Developer I44.7 R07.9 G47.33 R61 I42.9 Office Visit 01/21/2018 12:45p [facility] Of Marybel Wayne M.D. 18013 I42.8 C++ Quant Developer I48.2 I44.7 Office Visit 01/03/2018 11:20a [facility] Marybel Wayne M.D. 45079 I44.7 C++ Quant Developer AT [facility] I42.8 R06.02 I48.2 I34.0 Office Visit 11/05/2017 9:45a [facility] Marybel Wayne M.D. 58649 I44.7 C++ Quant Developer I42.8 R06.02 R42 I48.2 I63.9 D68.61 Office Visit 07/01/2017 10:00a [facility] [address] R56.9 Office Visit 01/21/2017 9:15a [facility] [address] R56.9 I63.50 Office Visit 11/12/2016 1:00p [facility] [place] [address] G47.33 Services Of C++ Quant Developer E66.09 Office Visit 05/16/2016 2:30p [facility] [place] [address] G47.33 Services Of C++ Quant Developer E66.09 Office Visit 03/01/2016 1:55p [facility] Garth Miranda, 65850 R47.01 MD Office Visit 03/01/2016 3:55p [facility], Le Andrea, 62658 R47.01 Hospitalists Juan J I48.91 R51 Office Visit 02/29/2016 3:55p [facility], 95086 R47.01 Assoc, Hospitalists N.P. I48.91 R51 Office Visit 02/29/2016 1:44p [facility] [place] [address] R47.01 R94.01 Office Visit 01/16/2016 2:15p [facility] [place] [address] R56.9 Services Of C++ Quant Developer I63.50 Z86.73 Office Visit 10/10/2015 3:54p [facility] [place] [address] R56.9 Z86.73 I48.91 R94.01 Office Visit 10/10/2015 11:25a [facility], Gabbie Hoyos, ULTIMATE HOOPS TRAINER 75329 R56.9 Hospitalists Z86.73 I48.91 I10 Office Visit 10/09/2015 11:24a [facility], Ana George N.P. 85618 R56.9 Hospitalists Z86.73 I48.91 I10 Office Visit 10/08/2015 3:53p [facility] [place] [address] I63.50 R56.9 Z86.73 I48.91 Office Visit 10/08/2015 11:24a [facility], Ana George N.P. 10368 R56.9 Hospitalists Z86.73 I48.91 I10 Office Visit 05/25/2015 2:28p [facility] Karmen Avery, 87712 I63.50 M.D. Office Visit 05/04/2015 4:00p [facility] Marybel Wayne 21892 427.31 Juan J 428.0 286.53 Office Visit 04/08/2015 11:45a [facility] Marybel Wayne M.D. 37419 428.0 [facility] 427.31 786.09 426.3 276.69 Office Visit 04/02/2015 2:27p [facility], Natividad Anderson, 82724 444.22 Hospitalists D.O. 427.31 278.01 401.9 Office Visit 04/01/2015 2:27p [facility], Ana George N.P. 18338 434.91 Hospitalists 427.31 278.01 401.9 Office Visit 04/01/2015 11:31a [facility] [place] [address] 434.91 427.31 Office Visit 03/21/2015 10:45a [facility] Of Marybel Wayne M.D. 07550 427.31 [facility] 401.9 413.9 564.00 426.3 Office Visit 03/14/2015 3:45p [facility] [place] [address] 427.31 C++ Quant Developer Office Visit 02/11/2015 2:15p [facility] Kristie Jones, 86771 327.23 Services Of [facility] ROLANDO BROWN, [facility] Office Visit 01/14/2015 1:15p [facility] Of Marybel Wayne M.D. 60318 427.31 [facility] 278.01 327.23 401.9 Office Visit 01/04/2015 11:00a [facility] Marybel Wayne M.D. 41845 427.31 C++ Quant Developer 780.79 278.01 Office Visit 12/06/2014 1:15p [facility] Marybel Wayne M.D. 83644 427.31 [facility] Office Visit 10/29/2014 9:15a [facility] Kristie Jones, 90367 327.23 Services Of [facility] ROLANDO BROWN, [facility] Office Visit 04/20/2014 12:29p [facility] Of Mamadou Rasmussen, 83458 427.31 [facility] M.D. Office Visit 04/06/2014 8:00a [facility] Nany Wayne M.D. 59316 427.31 C++ Quant Developer 401.9 Office Visit 07/16/2013 1:20p [facility] Nathaly Danielle, 60327 879.3 Infectious Diseases M.D. Office Visit 07/07/2013 10:10a [facility] Nathaly Danielle, 07522 879.3 Infectious Diseases M.D. Office Visit 07/07/2013 2:45p [facility] Nany Wayne M.D. 66111 427.31 [facility] 401.9 327.23 Office Visit 06/29/2013 9:07a [facility] Nathaly Danielle, 24076 879.3 Infectious Diseases M.D. Office Visit 06/26/2013 8:49a [facility] Nathaly Danielle, 18676 879.3 Infectious Diseases M.D. Office Visit 11/04/2012 1:15p [facility] Nany Wayne M.D. 94520 427.31 [facility] 785.1 401.9 327.23 Office Visit 09/03/2012 10:45a [facility] Nany Wayne M.D. 94355 427.31 C++ Quant Developer 327.23 278.00 427.32 Office Visit 05/01/2009 12:45a [facility] D. Leonardo, 66672 427.31 lis Anderson M.D. Hospitalist Plan of Care Future Appointment(s):06/27/2018 2:20 pm - Marybel Wayne M.D. at [facility]07/01/2018 9:30 am - [facility] - Mellissa Still, N.P.I42.8 Other cardiomyopathiesComments: Your heart function gets lower when you exert yourself.Referral:Barbi Allen MD, Cardiac ElectrophyslgyFollow up:2mo OV [place] or after device placement.I48.2 Chronic atrial nlivommbrkpwD07.02 Shortness of breathRecommendations:Continue to take bumex; if weight does not respond we could consider switching to a different type of diuretic.I34.0 Nonrheumatic mitral (valve) insufficiency
[2018-05-05 15:28] VITALS: BP 124/76
--- NOTE | 2018-05-05 16:38 | RAD ---
INDICATION: Cough and fever COMPARISON: February 29, 2016 TECHNIQUE: PA and lateral dual-energy views were obtained. FINDINGS: Bones/Soft Tissues: There are no acute bony findings. Cardiomediastinal: The cardiomediastinal silhouette is normal. Lungs: There are no infiltrates. Pleura: There are no pleural effusions. Other: None IMPRESSION: NO ACTIVE DISEASE.
--- NOTE | 2018-05-05 18:06 | UC ---
Respiratory Complaint HPI - HPI Summary HPI Summary: Patient is a 57-year-old female presenting to the with upper respiratory complaint. She sees in the past week she has been having wheezing and feeling a lot of chest congestion. She denies any fevers, sweats, chills. History of lupus and low ejection fraction with CHF. She believes this is just bronchitis and his viral and feels she does not need antibiotics or any other treatment, however she wanted to get checked out to make sure. Symptoms are not worse with positioning. She has been using NyQuil with good relief at home. 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 ?: No Onset/Duration: Sudden Onset Timing: Constant Severity Initially: Mild Severity Currently: Mild Pain Intensity: 0 Pain Scale Used: 0-10 Numeric Character: Cough: Productive - Risk Factors Pulmonary Embolism Risk Factors: Negative Cardiac Risk Factors: Negative Pseudomonas Risk Factors: Negative Tuberculosis Risk Factors: Immune Deficienty - Allergies/Home Medications Allergies/Adverse Reactions: Allergies Allergy/AdvReac Type Severity Reaction Status Date / Time hydroxychloroquine Allergy Severe Itching Verified 05/05/18 15:44 [From Plaquenil] Sulfa (Sulfonamide Allergy Severe Itching Verified 05/05/18 15:44 Antibiotics) Adhesive Tape Allergy Blisters Verified 02/29/16 10:38 bee venom protein (honey bee) Allergy Airway Verified 05/05/18 15:44 Obstruction promethazine [From Phenergan] Allergy Unknown Verified 05/05/18 15:44 Reaction Details TOMATOES Allergy Severe LIPS Uncoded 02/29/16 10:38 SWELL, ITCHY raw nuts Allergy Intermediate Swelling Uncoded 02/29/16 10:38 Of Face,Lips,& Throat MELONS Allergy LIPS Uncoded 02/29/16 10:38 SWELL, ITCHY POTATOES Allergy LIPS SWELL Uncoded 02/29/16 10:38 ITCHY Home Medications: Home Medications EPINEPHrine [Epipen] 0.3 mg SUBCUT ONCE PRN 05/05/18 [History Confirmed 05/05/18 ] PMH/Surg Hx/FS Hx/Imm Hx Previously Healthy: Yes - Surgical History Surgical History: Yes Surgery Procedure, Year, and Place: Tonsillectomy; Appendectomy; x4; Cholecystectomy; Right Knee Arthroscopy; Tubal Ligation; Endometrial Ablation; Cardioversion, hernia repair w/mesh subsequent infection and secondary operation to remove infected mesh & necrotic tissue, heart cath, pseudoanuerysm repair - Family History Known Family History: Positive: Cardiac Disease - Social History Occupation: Employed Full-time Lives: With Family Alcohol Use: Rare Substance Use Type: None Smoking Status (MU): Never Smoked Tobacco - Immunization History Most Recent Influenza Vaccination: pt states contraindicated by PCP Most Recent Tetanus Shot: within ten years Most Recent Pneumonia Vaccination: contraindicated by PCP Review of Systems Constitutional: Negative Skin: Negative Eyes: Negative Respiratory: Shortness Of Breath, Cough Cardiovascular: Negative Motor: Negative Neurovascular: Negative Psychological: Negative Is Patient Immunocompromised?: No All Other Systems Reviewed And Are Negative: Yes Physical Exam Triage Information Reviewed: Yes Appearance: Well-Appearing, Well-Nourished Vital Signs: Initial Vital Signs Temp 98.8 F 05/05/18 15:22 Pulse 72 05/05/18 15:22 Resp 16 05/05/18 15:22 BP 124/76 05/05/18 15:22 Pulse Ox 97 05/05/18 15:22 Vital Signs Reviewed: Yes Eye Exam: Normal Eyes: Positive: Conjunctiva Clear Neck exam: Normal Neck: Positive: Supple, No Lymphadenopathy Respiratory: Positive: Rhonchi - BILATERAL Cardiovascular Exam: Normal Cardiovascular: Positive: RRR Musculoskeletal Exam: Normal Musculoskeletal: Positive: Strength Intact Psychological: Positive: Normal Response To Family Skin Exam: Normal UC Diagnostic Evaluation - Laboratory O2 Sat by Pulse Oximetry: 97 Respiratory Course/Dx - Course Course Of Treatment: Patient is evaluated for bronchitis symptoms. Chest x-ray obtained which shows no acute cardiopulmonary findings. Patient is encouraged Mucinex and will give prednisone as she is very rhonchorous in both lung bases. No wheezing is noted. RRR. She is agreeable to this, however she would like to defer any antibiotics at this time. - Differential Dx/Diagnosis Provider Diagnoses: Bronchitis Discharge - Sign-Out/Discharge Documenting (check all that apply): Patient Departure All imaging exams completed and their final reports reviewed: Yes - Discharge Plan Condition: Stable Disposition: HOME Prescriptions: Guaifenesin/Pseudoephedrne HCl [Mucinex D ER 600-60 mg Tablet] 1 each PO BID # 12 tab.er.12h predniSONE TAB* [Deltasone TAB*] 50 mg PO DAILY #5 tab MDD 1 Patient Education Materials: Acute Bronchitis (ED) Referrals: Liset Casillas MD [Primary Care Provider] - Additional Instructions: Please follow up with PCP Mucinex twice daily as needed for cough Prednisone daily x 5 days - Billing Disposition and Condition Condition: STABLE Disposition: Home
== END 2018-05-05 16:50 | disposition home or self-care (01) ==
LOC: UCEAST 15:09
DX: J40 Bronchitis, not specified as acute or chronic (principal); Z88.2 Allergy status to sulfonamides; Z91.030 Bee allergy status; Z91.018 Allergy to other foods; Z91.09 Other allergy status, other than to drugs and biological substances; Z88.1 Allergy status to other antibiotic agents; Z88.8 Allergy status to other drugs, medicaments and biological substances
CPT/HCPCS: 71046; 99212; G0463

== ENCOUNTER 2018-08-29 12:58 | Emergency (ER) | payer BC ==
--- NOTE | 2018-08-29 13:08 | UC ---
Skin Complaint HPI - HPI Summary HPI Summary: 58 yo female presents with localized skin reaction. She tells me that she has a history of sensitivity to tape adhesive. Yesterday she had an ICD placement by her layer out plate glass and the dressing that was applied is causing an itchy red rash where the tape is. She is requesting the dressing be changed to something she has had in the past that does not bother her skin. Denies fever or chills. 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 Onset/Duration: Gradual Onset - Allergy/Home Medications Allergies/Adverse Reactions: Allergies Allergy/AdvReac Type Severity Reaction Status Date / Time hydroxychloroquine Allergy Severe Itching Verified 08/29/18 13:47 [From Plaquenil] Sulfa (Sulfonamide Allergy Severe Itching Verified 08/29/18 13:47 Antibiotics) Adhesive Tape Allergy Blisters Verified 08/29/18 13:47 bee venom protein (honey bee) Allergy Airway Verified 08/29/18 13:47 Obstruction promethazine [From Phenergan] Allergy Unknown Verified 08/29/18 13:47 Reaction Details TOMATOES Allergy Severe LIPS Uncoded 08/29/18 13:47 SWELL, ITCHY raw nuts Allergy Intermediate Swelling Uncoded 08/29/18 13:47 Of Face,Lips,& Throat MELONS Allergy LIPS Uncoded 08/29/18 13:47 SWELL, ITCHY POTATOES Allergy LIPS SWELL Uncoded 08/29/18 13:47 ITCHY PMH/Surg Hx/FS Hx/Imm Hx Cardiovascular History: Cardiac Disease, Hypertension, Pacemaker/ICD, Atrial Fibrillation Psychological History: Anxiety, Depression - Surgical History Surgical History: Yes Surgery Procedure, Year, and Place: Tonsillectomy; Appendectomy; x4; Cholecystectomy; Right Knee Arthroscopy; Tubal Ligation; Endometrial Ablation; Cardioversion, hernia repair w/mesh subsequent infection and secondary operation to remove infected mesh & necrotic tissue, heart cath, pseudoanuerysm repair - Family History Known Family History: Positive: Cardiac Disease - Social History Lives: With Family Alcohol Use: Rare Substance Use Type: None Smoking Status (MU): Never Smoked Tobacco - Immunization History Most Recent Influenza Vaccination: pt states contraindicated by PCP Most Recent Tetanus Shot: within ten years Most Recent Pneumonia Vaccination: contraindicated by PCP Review of Systems All Other Systems Reviewed And Are Negative: Yes Constitutional: Positive: Negative Skin: Positive: Rash Respiratory: Positive: Negative Cardiovascular: Positive: Negative Neurovascular: Positive: Negative Neurological: Positive: Negative Physical Exam - Summary Physical Exam Summary: GENERAL: NAD. WDWN. No pain distress. SKIN: LEFT upper chest: Surgical incision with maggie appears clean without edema, erythema, discharge, or bleeding. Surrounding area where tape is present on skin with light mildly erythematous rash. No open wound. CHEST: No accessory muscle use. Breathing comfortably and in no distress. CV: Pulses intact. Cap refill <2seconds NEURO: Alert. PSYCH: Age appropriate behavior. Triage Information Reviewed: Yes Vital Signs: Vital Signs: Temp Pulse Resp BP Pulse Ox 98.6 F 72 16 138/78 99 08/29/18 13:45 08/29/18 13:45 08/29/18 13:45 08/29/18 13:45 08/29/18 13:45 Course/Dx - Course Course Of Treatment: Dressing changed to telfa with pressure dressing on top. Pt advised to f/u with Antenna Engineer as scheduled for post op visit. - Diagnoses Provider Diagnosis: Contact dermatitis Discharge - Sign-Out/Discharge Documenting (check all that apply): Patient Departure All imaging exams completed and their final reports reviewed: No Studies - Discharge Plan Condition: Stable Disposition: HOME Patient Education Materials: Contact Dermatitis (DC) Referrals: Liset Casillas MD [Primary Care Provider] - Additional Instructions: If you develop a fever, shortness of breath, chest pain, new or worsening symptoms - please call your PCP or go to the ED. Please follow up with your layer out plate glass for further instructions regarding your dressing and ICD placement - Billing Disposition and Condition Condition: STABLE Disposition: Home - Attestation Statements Provider Attestation: I was available for consult. This patient was seen by the JOSEPH. The patient was not presented to, seen by, or examined by me. -Cesilia
[2018-08-29 13:47] VITALS: BP 138/78
== END 2018-08-29 13:10 | disposition home or self-care (01) ==
LOC: UCEAST 12:58
DX: L25.9 Unspecified contact dermatitis, unspecified cause (principal); I10 Essential (primary) hypertension; Z88.8 Allergy status to other drugs, medicaments and biological substances; Z88.2 Allergy status to sulfonamides; Z91.030 Bee allergy status; Z91.048 Other nonmedicinal substance allergy status; Z91.018 Allergy to other foods; Z95.0 Presence of cardiac pacemaker
CPT/HCPCS: 99201; G0463

== ENCOUNTER 2022-09-19 17:23 | Inpatient (IN) ==
[2022-09-19] MEDS ORDERED: Amiodarone 150 mg IVPREMIX 150 MG/100 ML BAG IV ONE (18:00)
[2022-09-19] MEDS ORDERED: .Amiodarone 24HR ONLY IV Protocol Order Note IV ONE (18:00)
[2022-09-19 18:01] LABS: ABS Basophils 0.1 10^3/ul (0-0.2); ABS Eosinophils 0.2 10^3/ul (0-0.6); ABS Lymphocytes 0.8 10^3/ul (1.0-4.8); ABS Monocytes 0.5 10^3/ul (0-0.8); ABS Neutrophils 4.4 10^3/ul (1.5-7.7); Eosinophil % 3.4 %; Hematocrit 43 % (35-47); Hemoglobin 13.7 g/dL (12.0-16.0); Lymphocyte % 13.4 %; Mean Corpuscular HGB Conc 32 g/dL (31-36); Mean Corpuscular Hemoglobin 29 pg (27-31); Mean Corpuscular Volume 90 fL (80-97); Mean Platelet Volume 8.6 fL (7.4-10.4); Platelet Count 180 10^3/uL (150-450); Red Blood Count 4.72 10^6 /uL (3.70-4.87); Red Cell Distribution Width 16 % (10-15); White Blood Count 5.9 10^3/uL (3.5-10.8)
[2022-09-19 18:05] LABS: INR 3.23 (0.88-1.18)
[2022-09-19] MEDS ORDERED: Amiodarone 360 MG IVPREMIX 360 MG/200 ML BAG IV SCH (18:10)
[2022-09-19 18:31] LABS: Albumin 3.6 g/dL (3.2-5.2); Calcium 8.8 mg/dL (8.6-10.3); Globulin 3.6 g/dL (2-4); Magnesium 1.8 mg/dL (1.9-2.7); Potassium 3.5 mmol/L (3.5-5.0); Total Bilirubin 2.6 mg/dL (0.2-1.0); Total Protein 7.2 g/dL (6.4-8.9); eGFR CKD-EPI 67.7 (>60)
[2022-09-19] MEDS ORDERED: Magnesium Sulfate 2 gm BAG 2 GM/50 ML BAG IVPB ONE (18:47)
[2022-09-19 19:30] LABS: High Sensitivity Troponin 1 Hr 43 pg/mL (<15)
[2022-09-19 20:06] LABS: C Reactive Protein 16.37 mg/L (<8.01); Phosphorus 2.5 mg/dL (2.5-5.0)
[2022-09-19 20:21] LABS: TSH Ultra Thyroid Stim Horm 1.82 mcIU/mL (0.34-5.60)
[2022-09-19] MEDS ORDERED: cefTRIAXone 1 gm/50 mL D5W 1 GM/50 ML BAG IV SCH (20:30)
[2022-09-19] MEDS: KCL 20 MEQ/100 ML IVPREMIX 20 MEQ/100 ML BAG IV SCH ×2 (20:31→21:37)
[2022-09-19] MEDS ORDERED: Potassium Chlor 20 meq TAB.ER PO ONE ×2 (20:42→22:53)
[2022-09-19] MEDS ORDERED: Azithromycin 500 mg/250 ml NS 500 MG/250 ML BAG IVPB SCH (21:00)
[2022-09-19 22:45] LABS: HDL Cholesterol 25.7 mg/dL
[2022-09-19] MEDS ORDERED: Bumetanide IV 0.25 MG/ML 4 ml VIAL (1 mg) IV SLOW PU ONE (22:52)
[2022-09-19] MEDS ORDERED: Warfarin per PHARMACY **NOTE FOLLOW UP SCH (23:00)
[2022-09-19 23:21] LABS: Urine Appearance Clear; Urine Bilirubin Negative (Negative); Urine Blood Negative (Negative); Urine Color Yellow; Urine Glucose 2+(150 mg/dL) (Negative); Urine Ketones Negative (Negative); Urine Nitrite Negative (Negative); Urine Protein Negative (Negative); Urine Urobilinogen Negative (Negative)
[2022-09-20 00:55] LABS: Calcium 8.8 mg/dL (8.6-10.3); Magnesium 2.2 mg/dL (1.9-2.7); Potassium 4.3 mmol/L (3.5-5.0); eGFR CKD-EPI 65.3 (>60)
[2022-09-20] MEDS: Amiodarone 360 MG IVPREMIX 360 MG/200 ML BAG IV SCH ×2 (01:17→13:16)
[2022-09-20 06:01] LABS: ABS Basophils 0.1 10^3/ul (0-0.2); ABS Eosinophils 0.3 10^3/ul (0-0.6); ABS Lymphocytes 0.8 10^3/ul (1.0-4.8); ABS Monocytes 0.6 10^3/ul (0-0.8); ABS Neutrophils 3.9 10^3/ul (1.5-7.7); Eosinophil % 4.7 %; Hematocrit 44 % (35-47); Hemoglobin 14.4 g/dL (12.0-16.0); Lymphocyte % 14.7 %; Mean Corpuscular HGB Conc 33 g/dL (31-36); Mean Corpuscular Hemoglobin 29 pg (27-31); Mean Corpuscular Volume 89 fL (80-97); Mean Platelet Volume 8.6 fL (7.4-10.4); Platelet Count 179 10^3/uL (150-450); Red Blood Count 4.98 10^6 /uL (3.70-4.87); Red Cell Distribution Width 16 % (10-15); White Blood Count 5.6 10^3/uL (3.5-10.8)
[2022-09-20 06:42] LABS: Albumin 3.6 g/dL (3.2-5.2); Calcium 8.5 mg/dL (8.6-10.3); Globulin 3.6 g/dL (2-4); Phosphorus 2.6 mg/dL (2.5-5.0); Potassium 3.5 mmol/L (3.5-5.0); Total Bilirubin 2.2 mg/dL (0.2-1.0); Total Protein 7.2 g/dL (6.4-8.9); eGFR CKD-EPI 72.3 (>60)
[2022-09-20] MEDS ORDERED: Potassium Chlor 20 meq TAB.ER PO ONE ×2 (06:44→09:00)
[2022-09-20 06:48] LABS: INR 3.76 (0.88-1.18)
[2022-09-20 14:45] LABS: Blood Urea Nitrogen 13 mg/dL (6-24); CO2 Carbon Dioxide 26 mmol/L (22-32); Calcium 9.1 mg/dL (8.6-10.3); Chloride 105 mmol/L (101-111); Glucose 134 mg/dL (70-100); Magnesium 2.1 mg/dL (1.9-2.7); Sodium 138 mmol/L (135-145); eGFR CKD-EPI 62.9 (>60)
[2022-09-20 14:47] LABS: Anion Gap 7 mmol/L (2-11)
[2022-09-20] MEDS ORDERED: Warfarin - No Order Today **NOTE FOLLOW UP ONE (17:00)
[2022-09-20] MEDS: Amiodarone 400 mg TAB PO SCH (19:27)
[2022-09-21 05:57] LABS: Hematocrit 41 % (35-47); Hemoglobin 13.3 g/dL (12.0-16.0); Mean Corpuscular HGB Conc 32 g/dL (31-36); Mean Corpuscular Hemoglobin 29 pg (27-31); Mean Corpuscular Volume 90 fL (80-97); Mean Platelet Volume 8.7 fL (7.4-10.4); Platelet Count 193 10^3/uL (150-450); Red Cell Distribution Width 17 % (10-15); White Blood Count 5.9 10^3/uL (3.5-10.8)
[2022-09-21 06:02] LABS: INR 3.03 (0.88-1.18)
[2022-09-21 06:50] LABS: Calcium 9.1 mg/dL (8.6-10.3); Potassium 4.1 mmol/L (3.5-5.0); eGFR CKD-EPI 64.5 (>60)
[2022-09-21] MEDS: Amiodarone 400 mg TAB PO SCH (08:49)
[2022-09-21 14:53] VITALS: BP 129/72
== END 2022-09-21 15:00 | disposition home or self-care (01) | DRG 201 ==
LOC: ED 17:23 → EDHOLD 19:39 → ICU 22:00
PROVIDERS: ADMIT Internal Medicine; ATTEND Internal Medicine

== ENCOUNTER 2023-08-15 19:15 | Inpatient (IN) ==
[2023-08-15] MEDS ORDERED: Amiodarone 360 MG IVPREMIX 360 MG/200 ML BAG IV ONE (19:28)
[2023-08-15] MEDS: Amiodarone 360 MG IVPREMIX 360 MG/200 ML BAG IV SCH (19:32)
[2023-08-15 20:08] LABS: ABS Basophils 0.1 10^3/uL (0.0-0.1); ABS Eosinophils 0.1 10^3/uL (0.0-0.5); ABS Lymphocytes 0.6 10^3/uL (1.0-4.8); ABS Monocytes 1.1 10^3/uL (0.0-0.9); ABS Neutrophils 10.7 10^3/uL (1.5-7.6); ABS Nucleated RBC 0.01 10^3/ul; Eosinophil % 0.5 %; Hematocrit 36.6 % (35-45); Hemoglobin 12.2 g/dL (11.5-14.3); Mean Corpuscular Hemoglobin 28.4 pg (27-33); Mean Corpuscular Hgb Conc 33.4 g/dL (31-36); Mean Corpuscular Volume 85.1 fL (80-97); Mean Platelet Volume 9.6 fL (7.5-11.2); Nucleated Red Blood Cells % 0.1 %/100WBC (0.0-0.8); Platelet Count 218 10^3/uL (150-450); Red Blood Count 4.31 10^6/uL (3.63-4.92); Red Cell Distribution Width 17.1 % (12-17); White Blood Count 12.6 10^3/uL (3.8-11.8)
[2023-08-15 20:25] LABS: INR 4.33 (0.83-1.13)
[2023-08-15 20:27] LABS: Albumin 2.8 g/dL (3.2-5.2); Albumin/Globulin Ratio 0.7 (1-3); Calcium 8.6 mg/dL (8.6-10.3); Creatinine, Serum 0.95 mg/dL (0.51-0.95); Globulin 4.3 g/dL (2-4); Magnesium 1.6 mg/dL (1.9-2.7); Potassium 3.3 mmol/L (3.5-5.0); Total Bilirubin 1.3 mg/dL (0.2-1.0); Total Protein 7.1 g/dL (6.4-8.9); eGFR CKD-EPI 67.3 (>60)
[2023-08-15] MEDS ORDERED: Morphine 4 MG/ML VIAL (1 ml) IV ONE (20:32)
[2023-08-15] MEDS ORDERED: Lidocaine 2% (CARDIAC or IV) 20 MG/ML 5 ML SYRINGE (100 MG) ONE (20:36)
[2023-08-15 21:54] LABS: High Sensitivity Troponin 1 Hr 49 pg/mL (<15)
[2023-08-16] MEDS: Amiodarone 360 MG IVPREMIX 360 MG/200 ML BAG IV SCH ×4 (01:06→12:37)
[2023-08-16 04:37] LABS: ABS Lymphocytes 0.5 10^3/uL (1.0-4.8); ABS Monocytes 0.2 10^3/uL (0.0-0.9); ABS Neutrophils 9.7 10^3/uL (1.5-7.6); ABS Nucleated RBC 0.01 10^3/ul; Eosinophil % 0.1 %; Hemoglobin 12.5 g/dL (11.5-14.3); Lymphocyte % 4.4 %; Mean Corpuscular Hemoglobin 28.9 pg (27-33); Mean Corpuscular Hgb Conc 33.9 g/dL (31-36); Mean Corpuscular Volume 85.4 fL (80-97); Mean Platelet Volume 9.4 fL (7.5-11.2); Nucleated Red Blood Cells % 0.1 %/100WBC (0.0-0.8); Platelet Count 210 10^3/uL (150-450); Red Blood Count 4.34 10^6/uL (3.63-4.92); Red Cell Distribution Width 16.6 % (12-17); White Blood Count 10.4 10^3/uL (3.8-11.8)
[2023-08-16 04:54] LABS: Calcium 9.2 mg/dL (8.6-10.3); Creatinine, Serum 0.86 mg/dL (0.51-0.95); Magnesium 1.9 mg/dL (1.9-2.7); Potassium 3.8 mmol/L (3.5-5.0); eGFR CKD-EPI 75.9 (>60)
[2023-08-16] MEDS: Morphine 4 MG/ML VIAL (1 ml) IV PRN ×2 (05:10→16:56)
[2023-08-16] MEDS ORDERED: Magnesium Sulfate IV 1GM/100ML 1 GM/100 ML BAG IV ONE (06:16)
[2023-08-16] MEDS ORDERED: Potassium Chlor 20 meq TAB.ER PO ONE ×2 (06:17→07:35)
[2023-08-16] MEDS ORDERED: CMCS: Mirabegron 25 mg ER TAB (NF) PO SCH (09:00)
[2023-08-16] MEDS ORDERED: Vibegron 75 MG TAB (NF) PO SCH (09:00)
[2023-08-16] MEDS ORDERED: Furosemide 20 mg/2 ml IV VIAL IV ONE (09:54)
[2023-08-16] MEDS ORDERED: Bumetanide IV 0.25 MG/ML 4 ml VIAL (1 mg) IV SLOW PU ONE (11:21)
[2023-08-16] MEDS ORDERED: Warfarin per PHARMACY **NOTE FOLLOW UP SCH (12:00)
[2023-08-16] MEDS ORDERED: Warfarin - No Order Today **NOTE FOLLOW UP ONE (17:00)
[2023-08-16] MEDS: Amiodarone 400 mg TAB PO SCH (20:28)
[2023-08-17 06:12] LABS: ABS Basophils 0.1 10^3/uL (0.0-0.1); ABS Eosinophils 0.1 10^3/uL (0.0-0.5); ABS Lymphocytes 0.8 10^3/uL (1.0-4.8); ABS Monocytes 1.3 10^3/uL (0.0-0.9); ABS Neutrophils 9.9 10^3/uL (1.5-7.6); ABS Nucleated RBC 0.01 10^3/ul; Eosinophil % 0.7 %; Hematocrit 36.8 % (35-45); Hemoglobin 12.2 g/dL (11.5-14.3); Lymphocyte % 6.7 %; Mean Corpuscular Hemoglobin 28.2 pg (27-33); Mean Corpuscular Hgb Conc 33.1 g/dL (31-36); Mean Corpuscular Volume 85.1 fL (80-97); Mean Platelet Volume 9.2 fL (7.5-11.2); Nucleated Red Blood Cells % 0.1 %/100WBC (0.0-0.8); Platelet Count 257 10^3/uL (150-450); Red Blood Count 4.32 10^6/uL (3.63-4.92); Red Cell Distribution Width 16.9 % (12-17); White Blood Count 12.2 10^3/uL (3.8-11.8)
[2023-08-17 06:13] LABS: INR 3.95 (0.83-1.13)
[2023-08-17 06:30] LABS: Albumin 2.7 g/dL (3.2-5.2); Albumin/Globulin Ratio 0.7 (1-3); Calcium 8.7 mg/dL (8.6-10.3); Creatinine, Serum 0.94 mg/dL (0.51-0.95); Globulin 4.1 g/dL (2-4); Magnesium 1.9 mg/dL (1.9-2.7); Phosphorus 2.5 mg/dL (2.5-5.0); Potassium 3.4 mmol/L (3.5-5.0); Total Bilirubin 0.9 mg/dL (0.2-1.0); Total Protein 6.8 g/dL (6.4-8.9); eGFR CKD-EPI 68.2 (>60)
[2023-08-17 06:53] LABS: TSH Ultra Thyroid Stim Horm 1.91 mcIU/mL (0.34-5.60)
[2023-08-17] MEDS ORDERED: KCL 20 MEQ/100 ML IVPREMIX 20 MEQ/100 ML BAG IV SCH ×2 (09:00→22:00)
[2023-08-17] MEDS: Amiodarone 400 mg TAB PO SCH ×2 (09:42→21:59)
[2023-08-17] MEDS: Potassium Chlor 20 meq TAB.ER PO SCH ×3 (10:40→16:34)
[2023-08-17] MEDS ORDERED: Warfarin - No Order Today **NOTE FOLLOW UP ONE (17:00)
[2023-08-17] MEDS ORDERED: Potassium Chlor 20 meq TAB.ER PO ONE (23:36)
[2023-08-18] MEDS: Benzocaine/Menthol LOZ PO PRN ×2 (08:11→16:40)
[2023-08-18] MEDS: Amiodarone 400 mg TAB PO SCH ×2 (08:12→22:18)
[2023-08-18] MEDS ORDERED: Senna TAB 8.6 mg TAB PO PRN (08:30)
[2023-08-18] MEDS ORDERED: Polyethylene Glycol 3350 17 GM PACKET PO PRN (08:30)
[2023-08-18] MEDS ORDERED: Magnesium Hydroxide LIQ 30 ML UDC PO PRN (08:30)
[2023-08-18 09:14] LABS: ABS Basophils 0.1 10^3/uL (0.0-0.1); ABS Lymphocytes 0.7 10^3/uL (1.0-4.8); ABS Monocytes 1.5 10^3/uL (0.0-0.9); ABS Neutrophils 13.6 10^3/uL (1.5-7.6); Eosinophil % 0.3 %; Hematocrit 37.6 % (35-45); Hemoglobin 12.4 g/dL (11.5-14.3); Lymphocyte % 4.6 %; Mean Corpuscular Volume 84.9 fL (80-97); Mean Platelet Volume 9.2 fL (7.5-11.2); Platelet Count 259 10^3/uL (150-450); Red Blood Count 4.42 10^6/uL (3.63-4.92); White Blood Count 15.9 10^3/uL (3.8-11.8)
[2023-08-18] MEDS: Magnesium Hydroxide LIQ 30 ML UDC PO SCH ×2 (09:23→20:12)
[2023-08-18 09:34] LABS: Albumin 2.8 g/dL (3.2-5.2); Albumin/Globulin Ratio 0.7 (1-3); Calcium 8.8 mg/dL (8.6-10.3); Creatinine, Serum 0.81 mg/dL (0.51-0.95); Globulin 4.2 g/dL (2-4); Potassium 4.3 mmol/L (3.5-5.0); Total Bilirubin 1.8 mg/dL (0.2-1.0); eGFR CKD-EPI 81.5 (>60)
[2023-08-18 14:10] LABS: INR 2.83 (0.83-1.13)
[2023-08-18] MEDS: Albuterol HFA INHALER 8 gm MDI INH SCH ×2 (17:12→22:51)
[2023-08-18 18:39] LABS: High Sensitivity Troponin 1 Hr 17 pg/mL (<15)
[2023-08-18] MEDS: guaiFENesin/CODIENE 100mg/10mg 5 ML UDC PO PRN (19:42)
[2023-08-19] MEDS: Benzocaine/Menthol LOZ PO PRN ×2 (02:02→16:32)
[2023-08-19] MEDS: Albuterol HFA INHALER 8 gm MDI INH SCH ×6 (02:15→23:49)
[2023-08-19] MEDS: guaiFENesin/CODIENE 100mg/10mg 5 ML UDC PO PRN ×2 (06:13→16:31)
[2023-08-19 06:49] LABS: INR 2.51 (0.83-1.13)
[2023-08-19 06:56] LABS: Albumin 2.9 g/dL (3.2-5.2); Albumin/Globulin Ratio 0.6 (1-3); Calcium 9.2 mg/dL (8.6-10.3); Creatinine, Serum 0.85 mg/dL (0.51-0.95); Globulin 4.5 g/dL (2-4); Potassium 3.9 mmol/L (3.5-5.0); Total Bilirubin 1.9 mg/dL (0.2-1.0); Total Protein 7.4 g/dL (6.4-8.9); eGFR CKD-EPI 76.9 (>60)
[2023-08-19 06:57] LABS: ABS Basophils 0.1 10^3/uL (0.0-0.1); ABS Eosinophils 0.1 10^3/uL (0.0-0.5); ABS Monocytes 1.3 10^3/uL (0.0-0.9); ABS Neutrophils 11.8 10^3/uL (1.5-7.6); ABS Nucleated RBC 0.01 10^3/ul; Eosinophil % 0.9 %; Hematocrit 38.8 % (35-45); Hemoglobin 12.8 g/dL (11.5-14.3); Mean Corpuscular Hemoglobin 28.4 pg (27-33); Mean Corpuscular Volume 86.1 fL (80-97); Mean Platelet Volume 9.8 fL (7.5-11.2); Nucleated Red Blood Cells % 0.1 %/100WBC (0.0-0.8); Platelet Count 281 10^3/uL (150-450); Red Blood Count 4.51 10^6/uL (3.63-4.92); Red Cell Distribution Width 17.1 % (12-17); White Blood Count 14.4 10^3/uL (3.8-11.8)
[2023-08-19] MEDS: Amiodarone 400 mg TAB PO SCH ×2 (08:47→21:43)
[2023-08-19] MEDS: Magnesium Hydroxide LIQ 30 ML UDC PO SCH ×2 (08:47→21:54)
[2023-08-19 19:10] LABS: Urine Appearance Clear; Urine Bilirubin Negative (Negative); Urine Blood Negative (Negative); Urine Color Yellow; Urine Glucose 3+(>=500 mg/dL) (Negative); Urine Ketones Negative (Negative); Urine Nitrite Negative (Negative); Urine Protein Negative (Negative); Urine Specific Gravity 1.014 (1.002-1.030); Urine Urobilinogen Negative (Negative)
[2023-08-19] MEDS: Warfarin DAILY REMINDER **NOTE FOLLOW UP SCH (19:16)
[2023-08-19] MEDS: cefTRIAXone 1 gm/50 mL D5W 1 GM/50 ML BAG IV SCH (19:32)
[2023-08-20] MEDS: guaiFENesin/CODIENE 100mg/10mg 5 ML UDC PO PRN (00:30)
[2023-08-20] MEDS: Benzocaine/Menthol LOZ PO PRN (02:40)
[2023-08-20] MEDS: Albuterol HFA INHALER 8 gm MDI INH SCH ×6 (03:00→22:39)
[2023-08-20 07:04] LABS: ABS Basophils 0.1 10^3/uL (0.0-0.1); ABS Eosinophils 0.3 10^3/uL (0.0-0.5); ABS Neutrophils 9.1 10^3/uL (1.5-7.6); ABS Nucleated RBC 0.01 10^3/ul; Eosinophil % 2.7 %; Hemoglobin 11.4 g/dL (11.5-14.3); Lymphocyte % 8.4 %; Mean Corpuscular Hemoglobin 27.8 pg (27-33); Mean Corpuscular Hgb Conc 32.6 g/dL (31-36); Mean Corpuscular Volume 85.4 fL (80-97); Mean Platelet Volume 9.5 fL (7.5-11.2); Nucleated Red Blood Cells % 0.1 %/100WBC (0.0-0.8); Platelet Count 266 10^3/uL (150-450); Red Cell Distribution Width 16.9 % (12-17); White Blood Count 11.5 10^3/uL (3.8-11.8)
[2023-08-20 07:17] LABS: INR 2.77 (0.83-1.13)
[2023-08-20 07:21] LABS: Calcium 8.6 mg/dL (8.6-10.3); Creatinine, Serum 0.86 mg/dL (0.51-0.95); Magnesium 1.9 mg/dL (1.9-2.7); Potassium 3.6 mmol/L (3.5-5.0); eGFR CKD-EPI 75.9 (>60)
[2023-08-20] MEDS ORDERED: Potassium Chlor 20 meq TAB.ER PO ONE (08:07)
[2023-08-20] MEDS: Fluticasone NASAL SPRAY 50MCG 16 gm SPRAY BTL BOTH NARES SCH (08:53)
[2023-08-20] MEDS: Magnesium Hydroxide LIQ 30 ML UDC PO SCH ×2 (08:53→21:17)
[2023-08-20] MEDS: Amiodarone 400 mg TAB PO SCH ×2 (08:56→21:17)
[2023-08-20] MEDS ORDERED: Ondansetron 4 mg VIAL 2 MG/ML 2 ml VIAL IV PRN (09:16)
[2023-08-20] MEDS: cefTRIAXone 1 gm/50 mL D5W 1 GM/50 ML BAG IV SCH (17:27)
[2023-08-20] MEDS: Warfarin DAILY REMINDER **NOTE FOLLOW UP SCH (18:11)
[2023-08-21] MEDS: Albuterol HFA INHALER 8 gm MDI INH SCH ×4 (02:28→15:52)
[2023-08-21] MEDS: Benzocaine/Menthol LOZ PO PRN (06:59)
[2023-08-21 07:32] LABS: ABS Basophils 0.1 10^3/uL (0.0-0.1); ABS Eosinophils 0.4 10^3/uL (0.0-0.5); ABS Lymphocytes 1.2 10^3/uL (1.0-4.8); ABS Monocytes 0.7 10^3/uL (0.0-0.9); ABS Neutrophils 6.4 10^3/uL (1.5-7.6); ABS Nucleated RBC 0.01 10^3/ul; Hematocrit 36.8 % (35-45); Hemoglobin 12.2 g/dL (11.5-14.3); Lymphocyte % 13.5 %; Mean Corpuscular Hemoglobin 28.6 pg (27-33); Mean Corpuscular Hgb Conc 33.1 g/dL (31-36); Mean Corpuscular Volume 86.5 fL (80-97); Mean Platelet Volume 9.2 fL (7.5-11.2); Nucleated Red Blood Cells % 0.1 %/100WBC (0.0-0.8); Platelet Count 312 10^3/uL (150-450); Red Blood Count 4.25 10^6/uL (3.63-4.92); Red Cell Distribution Width 16.9 % (12-17); White Blood Count 8.8 10^3/uL (3.8-11.8)
[2023-08-21 07:38] LABS: INR 2.74 (0.83-1.13)
[2023-08-21 07:48] LABS: Calcium 9.1 mg/dL (8.6-10.3); Creatinine, Serum 0.87 mg/dL (0.51-0.95); Magnesium 2.2 mg/dL (1.9-2.7); Potassium 4.1 mmol/L (3.5-5.0); eGFR CKD-EPI 74.8 (>60)
[2023-08-21] MEDS: Magnesium Hydroxide LIQ 30 ML UDC PO SCH ×2 (09:35→20:45)
[2023-08-21] MEDS: Fluticasone NASAL SPRAY 50MCG 16 gm SPRAY BTL BOTH NARES SCH (09:44)
[2023-08-21] MEDS: Amiodarone 400 mg TAB PO SCH ×2 (09:44→20:45)
[2023-08-21] MEDS: Warfarin DAILY REMINDER **NOTE FOLLOW UP SCH (16:22)
[2023-08-21] MEDS: cefTRIAXone 1 gm/50 mL D5W 1 GM/50 ML BAG IV SCH ×2 (16:26→17:35)
[2023-08-21] MEDS ORDERED: Albuterol HFA INHALER 8 gm MDI INH SCH (19:00)
[2023-08-21 20:44] VITALS: BP 119/55
[2023-08-22 22:13] LABS: Cryptococcus Antigen w/Titer Negative (Negative)
[2023-08-23 16:00] LABS: C-ANCA Negative (Negative); P-ANCA Negative (Negative)
== END 2023-08-21 21:30 | disposition short-term general hospital (02) | DRG 201 ==
LOC: ED 19:15 → SUATTDRO 23:51 → ICU 23:51 → EDHOLD 23:51 → ICU 08-16 00:05 → MEDTELE 08-17 17:45
PROVIDERS: ADMIT Surgery Surgical Critical Care; ATTEND Student in an Organized Health Care Education/Training Program

== ENCOUNTER 2023-09-15 00:09 | Observation (INO) ==
[2023-09-15] MEDS ORDERED: Iodixanol (CONTRAST) 320 MG/ML 100 ML SDV IV ONE (00:23)
[2023-09-15 01:12] LABS: ABS Basophils 0.1 10^3/uL (0.0-0.1); ABS Eosinophils 0.1 10^3/uL (0.0-0.5); ABS Lymphocytes 1.1 10^3/uL (1.0-4.8); ABS Monocytes 0.8 10^3/uL (0.0-0.9); ABS Neutrophils 6.1 10^3/uL (1.5-7.6); ABS Nucleated RBC 0.01 10^3/ul; Eosinophil % 1.5 %; Hematocrit 32.8 % (35-45); Hemoglobin 10.8 g/dL (11.5-14.3); Mean Corpuscular Hgb Conc 32.9 g/dL (31-36); Mean Corpuscular Volume 88.2 fL (80-97); Mean Platelet Volume 9.8 fL (7.5-11.2); Nucleated Red Blood Cells % 0.1 %/100WBC (0.0-0.8); Platelet Count 285 10^3/uL (150-450); Red Blood Count 3.71 10^6/uL (3.63-4.92); Red Cell Distribution Width 21.2 % (12-17); White Blood Count 8.2 10^3/uL (3.8-11.8)
[2023-09-15 01:21] LABS: Activated Partial Thrombo Time 25.6 seconds (26.0-38.0); INR 1.5 (0.83-1.13)
[2023-09-15 01:25] LABS: Albumin/Globulin Ratio 0.8 (1-3); Calcium 8.3 mg/dL (8.6-10.3); Creatinine, Serum 1.29 mg/dL (0.51-0.95); Direct Bilirubin 0.2 mg/dL (0.03-0.18); HDL Cholesterol 16.8 mg/dL; Indirect Bilirubin 0.6 mg/dL (0.3-1.0); Potassium 4.1 mmol/L (3.5-5.0); Total Bilirubin 0.8 mg/dL (0.2-1.0); eGFR CKD-EPI 46.6 (>60)
[2023-09-15] MEDS ORDERED: levETIRAcetam LIQ 500 MG/5 ML UDC PO ONE (01:39)
[2023-09-15 03:23] LABS: Urine Appearance Cloudy; Urine Bilirubin Negative (Negative); Urine Blood Negative (Negative); Urine Color Yellow; Urine Glucose 3+(>=500 mg/dL) (Negative); Urine Ketones Negative (Negative); Urine Nitrite Negative (Negative); Urine Protein Negative (Negative); Urine Specific Gravity 1.045 (1.002-1.030); Urine Urobilinogen Positive (Negative)
[2023-09-15 03:56] LABS: Urine Bacteria Absent (Absent); Urine Red Blood Cell 2+(6-10/hpf) (Absent); Urine Squamous Epithelial Cell Present (Absent); Urine White Blood Cell 3+(>20/hpf) (Absent)
[2023-09-15] MEDS ORDERED: Albuterol HFA INHALER 8 gm MDI INH PRN (03:58)
[2023-09-15] MEDS ORDERED: Warfarin per PHARMACY **NOTE FOLLOW UP SCH (05:00)
[2023-09-15] MEDS: NF:DAPAGLIFLOZIN 10 MG TAB (NF) PO SCH (11:05)
[2023-09-15 13:01] LABS: INR 1.56 (0.83-1.13)
[2023-09-15] MEDS ORDERED: Enoxaparin 100 MG/ML SYR SUBCUT SCH (18:00)
[2023-09-15] MEDS: Warfarin DAILY REMINDER **NOTE FOLLOW UP SCH (21:32)
[2023-09-15] MEDS: Enoxaparin 100 MG/ML SYR SUBCUT SCH (21:37)
[2023-09-16 06:26] LABS: Hematocrit 33.4 % (35-45); Hemoglobin 10.9 g/dL (11.5-14.3); Mean Corpuscular Hgb Conc 32.8 g/dL (31-36); Mean Corpuscular Volume 88.4 fL (80-97); Mean Platelet Volume 9.5 fL (7.5-11.2); Platelet Count 266 10^3/uL (150-450); Red Blood Count 3.77 10^6/uL (3.63-4.92); White Blood Count 7.6 10^3/uL (3.8-11.8)
[2023-09-16 06:36] LABS: INR 1.76 (0.83-1.13)
[2023-09-16 06:47] LABS: Albumin 3.1 g/dL (3.2-5.2); Albumin/Globulin Ratio 0.8 (1-3); Calcium 8.5 mg/dL (8.6-10.3); Creatinine, Serum 1.08 mg/dL (0.51-0.95); Globulin 3.9 g/dL (2-4); Potassium 3.9 mmol/L (3.5-5.0); Total Bilirubin 0.9 mg/dL (0.2-1.0); eGFR CKD-EPI 57.7 (>60)
[2023-09-16 07:20] LABS: ABS Basophils 0.2 10^3/uL (0.0-0.1); ABS Eosinophils 0.1 10^3/uL (0.0-0.5); ABS Lymphocytes 1.1 10^3/uL (1.0-4.8); ABS Monocytes 0.7 10^3/uL (0.0-0.9); ABS Neutrophils 5.5 10^3/uL (1.5-7.6); Anisocytosis 2+; Eosinophil % 1.2 %; Lymphocyte % 14.4 %; Nucleated Red Blood Cells % 0.1 %/100WBC (0.0-0.8); Polychromasia 1+
[2023-09-16] MEDS: Enoxaparin 100 MG/ML SYR SUBCUT SCH ×2 (07:34→20:27)
[2023-09-16] MEDS: Aspirin EC 325 mg TAB.EC PO SCH (07:35)
[2023-09-16] MEDS ORDERED: Influenza vaccine *QUAD* *2023-24* 0.5 ML SYRINGE IM ONE (09:00)
[2023-09-16] MEDS: NF:DAPAGLIFLOZIN 10 MG TAB (NF) PO SCH (11:33)
[2023-09-16] MEDS: Warfarin DAILY REMINDER **NOTE FOLLOW UP SCH (20:10)
[2023-09-17 05:27] VITALS: BP 104/71
[2023-09-17 06:46] LABS: Hematocrit 34.1 % (35-45); Hemoglobin 11.1 g/dL (11.5-14.3); Mean Corpuscular Hemoglobin 28.9 pg (27-33); Mean Corpuscular Hgb Conc 32.6 g/dL (31-36); Mean Corpuscular Volume 88.5 fL (80-97); Mean Platelet Volume 9.3 fL (7.5-11.2); Platelet Count 252 10^3/uL (150-450); Red Blood Count 3.85 10^6/uL (3.63-4.92); Red Cell Distribution Width 21.5 % (12-17); White Blood Count 6.9 10^3/uL (3.8-11.8)
[2023-09-17 06:47] LABS: INR 2.24 (0.83-1.13)
[2023-09-17 07:01] LABS: Creatinine, Serum 0.93 mg/dL (0.51-0.95); Magnesium 1.9 mg/dL (1.9-2.7); Phosphorus 2.7 mg/dL (2.5-5.0); eGFR CKD-EPI 69.1 (>60)
[2023-09-17] MEDS: Aspirin EC 325 mg TAB.EC PO SCH (07:45)
[2023-09-17] MEDS: Enoxaparin 100 MG/ML SYR SUBCUT SCH (07:46)
[2023-09-17] MEDS: NF:DAPAGLIFLOZIN 10 MG TAB (NF) PO SCH (07:55)
== END 2023-09-17 12:25 | disposition home or self-care (01) ==
LOC: ED 00:09 → EDHOLD 00:09 → SUATTDRO 03:04 → MEDTELE 03:04
PROVIDERS: ADMIT Internal Medicine; ATTEND Internal Medicine